=== PATIENT | female | born 1975 | race Caucasian/White ===

== ENCOUNTER 2022-02-12 09:43 | Outpatient (CLI) | payer BC, SELFPAY ==
--- NOTE | 2022-02-12 09:45 | CRLHL7_ITS ---
For Patients: As a result of the Century Cures Act, medical imaging exams and procedure reports are released immediately into your electronic medical record. You may view this report before your referring provider. If you have questions, please contact your health care provider. INDICATION: Third trimester scan, evaluate growth. COMPARISON: none TECHNIQUE: Real time ellis scale imaging of the fetus was performed. FINDINGS: Sonographic imaging demonstrates a single living intrauterine gestation. Fetus demonstrates a regular cardiac rate of 139 beats per minute. Fetus has a vertex position. The placenta lies anteriorly without evidence of placenta previa. The edge of the placenta is located 4.5 cm from the internal cervical os. Amniotic fluid volume appears normal and there is a single deepest vertical pocket: 6.6 cm. The estimated weight is 1288gm which lies at the 58th %. BPD 84th percentile. HC 86th percentile. AC 60th percentile. FL 29th percentile. The HC/AC ratio measures 1.14 range (0.98-1.20). Anterior fibroids are present measuring 1.9 x 1.3 x 2.2 cm and 3.1 x 1.7 x 3.3 cm. IMPRESSION: The anterior placental edge is located 4.5 cm from the internal cervical os. Anterior fibroids measuring 3.3 cm and 2.2 cm. Sonographic gestational age 29 weeks 3 days and sonographic due date 04/27/2022. Sonographic age 8 days ahead of the clinical age. Estimated weight 58th percentile. Abdominal circumference 60th percentile. Dictated by Twan Pickens MD @ 02/12/2022 11:20:50 AM (Electronically Signed)
--- OUTSIDE RECORDS SUMMARY | 2022-02-12 09:50 | XMS_ITS | Clinical Summary ---
:1975 Author Organization [facility] Address [address] [place] [id number] Care Team Providers Name Role Phone Unavailable Primary Care Provider Unavailable Encounters Date Type Specialty Care Team Description 01/03/2022 Office Visit Maternal and Danay Quesada, resulting Medicine Neo A from in vitro Ana Arreaga fertilizat ion in DO sharath Narvaez trimeste r (Primary Dx) 01/03/2022 Hospital Encounter Radiology. Danay Quesada related Neo A condition Ana Arreaga DO 01/03/2022 Travel 12/12/2021 Office Visit Maternal and Danay Quesada, Placenta previa in second trimester (Primary Dx); Medicine Neo A Uterine fibroids affecting in second trimester Aan Arreaga DO 12/12/2021 Hospital Encounter Radiology. Danay Quesada related Neo A condition Ana Arreaga DO 12/12/2021 PRE VISIT Maternal and Agus Romerooun d (L2-IVF) Medicine DON Ferreira 12/12/2021 Travel from Last 3 Months Social History Tobacco Use Types Packs/Day Years Used Date Smoking Tobacco: Never Assessed Estimated Date of Delivery Comments Yes 05/05/2022 Based on Other Basis , Dating based on IVF transfer date of 08/04 08/25 Sex Assigned at Date Recorded Not on file Plan of Treatment Health Maintenance Due Date Last Done Comments ADVANCE CARE PLANNING 1975 ANNUAL REVIEW OF HM ORDERS 1975 CT COLONOGRAPHY 1975 FIT-DNA (Cologuard) 1975 FIT 1975 FLEX SIG 1975 MAMMO SCREENING 1975 YEARLY PREVENTIVE VISIT 1975 COLONOSCOPY 1985 COLORECTAL CANCER SCREENING 1985 HIV SCREENING 1990 HEPATITIS C SCREENING 1993 PAP 02/29/1996 LIPID 02/29/2020 PHQ-2 (once per calendar 05/06/2021 year) COVID-19 Vaccine (4 - 05/17/2021 03/22/2021, 09/14/2020, Booster for Moderna series) 08/16/2020 DTAP/TDAP/TD IMMUNIZATION 10/16/2021 10/17/2011, 03/04/2002 (2 - Td or Tdap) MATERNAL SCREENING 11/11/2021 INFLUENZA VACCINE (#1) 2022 02/17/2021, 02/16/2020, 02/11/2019, Additional history exists OBGCT (OB) 01/13/2022 REPEAT ANTIBODY SCREEN (OB) 02/10/2022 HEPATITIS B IMMUNIZATION Aged Out 12/10/2002, 04/14/2002, No longer eligible 03/04/2002 based on patient 's age to complete this topic IPV IMMUNIZATION Aged Out 09/26/2006 No longer eligi ble based on patient 's age to complete this topic MENINGITIS IMMUNIZATION Aged Out No longe r eligible based on patient 's age to complete this topic Pneumococcal Vaccine: Aged Out No longer eligible Pediatrics (0 to 5 Years) based on patient's age and At-Risk Patients (6 to to co mplete this topic 64 Years) Procedures Procedure Name Priority Date/Time Associated Comments Diagnosis [facility] READ SCREENING Routine 01/03/2022 2:33 PM relate d Results for this ECHO DEMPSEY CDT condition procedu re are in the results section. [facility] COMPREHENSIVE Routine 12/12/2021 12:31 relate d Results for this SINGLE PM CDT condition procedure are i n the results section. from Last 3 Months Results [facility] Read Screen Echo Single (01/03/2022 2:33 PM CDT) Anatomical Region Laterality Modality Ultrasound Specimen (Source) Anatomical Collection Method Collection Time Re ceived Time Location / / Volume Laterality 01/03/2022 1:18 PM CDT Impressions 01/03/2022 3:09 PM CDT IMPRESSION Normal echo for this gestational a ge. On any echocardiography one cannot rule out small atrial or ventricular septal defects, persistent ductus arteriosus, mild coarctation of the aorta, partial anomal ous pulmonary venous return, minor anatomic valve anomalies or coronary artery anomalies, partial atrioventricular septal defects also may not be seen. Narrative 01/03/2022 3:09 PM CDT Echo Pat. Name: ELIZABETH CONDE Study Date: 01/03/2022 1:18pm Pat. NO: [id number] Referring ??MD: ISSAC KEYES PURDY Site: [facility] Cnc Specialist: Briana Thapa RDMS : 1975 Age: 46 INDICATION In vitro fertilization METHOD Grayscale imaging, Doppler echocardiogra phy color flow velocity mapping and Doppler echocardiography pulsed wave and or wave with spectral display were used to assess cardiac structures for bryon vazquez [facility] echocardiogram. View: Sufficient Dempsey . Number of fetuses: 1 DATING ? Date ?Details ?Gest. age ?GWENDOLYN Conception ? Conception: IVF Embryo transfer ?08/17/2021 ?IVF / ET: 5 d ? 22 w + 4 d ? 05/05/2022 Assigned dating ?Dating performed on 12/12/2021, based on the IVF / ET date ?22 w + 4 d ? 05/05/2022 GENERAL EVALUATION Cardiac activity present. FHR 154 bpm. movements visualized. Presentation Variable. Placenta Placental site: anterior. Umbilical cord 3 vessel cord. Amniotic fluid Amount of AF: normal. MVP 5.0 cm. ECHOCARDIOGRAM 2D Echo (Qualitatively): Situs ?situs solitus (normal) Cardiac position ?levocardia (normal) Cardiac axis ?normal Cardiac size ?normal (approx. 1/3 of thoracic area) Cardiac Rhythm ?regular (normal) 4-chamber view ? normal LVOT view ? normal RVOT view ?normal 3-vessel view ? normal 7-vrwxsa-yowfipe view ? normal High short axis view ? normal Aortic arch view ? normal Ductal arch view ?suboptimal Bicaval view ?normal SVC ? normal IVC ?normal AV connections ? Normal alignment VA connections ? Normal size and morphology Pulmonary veins ?Two or more pulmonary veins are identified entering the left atrium. Atria ? Atria approximately equal in size Atrial septum ?Normal size and morphology Foramen ovale ? Normal, patent foramen ovale Ventricles ? Ventricles approximately equal in size Ventricular septum ? Ventricular septum appears intact (apex to crux) Tricuspid valve ? No significant regurgitation seen Mitral valve ?No significant regurgitation seen Pulmonary valve ?Normal size and morphology Aortic valve ? Normal size and morphology Cross-over gr. arteries ?Normal 4 chamber view with normal axis and situs. Normal relationship of the great arteries. Main PA ? The main pulmonary artery can be seen bifurcating into the arterial duct and the right pulmonary artery Pulmonary trunk ?Normal size and morphology Aortic root ? Normal size and morphology Ascending aorta ?Normal size and morphology Descending aorta ?Normal size and morphology Ductus venosus ? Normal Umbilical vein ?Normal Umbilical arteries ? Normal Linear insertion of AV valves ?no Pericardial effusion ?no Color Doppler (Qualitatively): 4-chamber view diast ?Normal LVOT view ? Normal RVOT view ?Normal 3-vessel view ? Normal 3-vessel - trachea view ? Normal Valvular regurgitation ?no IVC inflow into RA ? normal ? LVOT / Aortic valve flow ?normal SVC inflow into RA ?normal ? Flow in pulmonary arteries ? normal Pulm. veins inflow into LA ?normal ? Flow in ductus arteriosus ? normal Flow through foramen ovale ?right-left shunt (normal) ? Flow in aortic arch ? normal Tricuspid valve flow ?normal ? Flow in descending aorta ? normal Mitral valve flow ? normal ? Flow in ductus venosus ? normal Ventricular septum ?normal ? Flow in the umbilical arteries ?normal RVOT / Pulmonary valve flow ?normal 2D and M-Mode Measurements: Cardiac Chambers 2D Mode: TV annulus diast ? 5.6 ?mm ? MV annulus diast ?6.0 ?mm PV annulus syst ?3 .8 ? mm ? AoV annulus syst ? 3.0 ?mm MV annulus diast / TV ?1.07 ? AoV annulus syst / PV ?0.79 annulus diast ?annulus syst Heart Z-Scores: ? Z- GA ? Zscore by TV annulus diast ? 5.6 ?mm ? -1.18 ? Pizano MV annulus diast ?6.0 ?mm ? -0.67 ? Pizano PV annulus syst ? 3.8 ?mm ?-0.54 ?Pizano AoV annulus syst ? 3.0 ?mm ?-0.92 ? [facility] RECOMMENDATION Thank-you for referring your patient for a screening echocardiogram. I discussed the findings on today's ultr asound with the patient. I reviewed the limitations of ultrasound. Further cardiac evaluation as clinically indicated. She had questions about the COVID-19 vac cine during . She is fully vaccinated and boosted against COVID at this time, but was enquiring about vaccination in if she were to become eligible for vaccination for another indication. We reviewed that there are no known contraindications to COVID vaccination in and would support her proceeding with is, if eligible. She is scheduled to follow-up at 28 and 34 weeks to reassess placental location as well as growth. Additionally, surveillance with weekly BPPs is recommended at 36 weeks due to IVF and A MA>40. Return to primary provider for continued care. If you have questions regarding today's evaluation or if we can be of further service, please contact [facility]. anomalies may be present but not detected Procedure Note Ana Arreaga, DO - 01/03/2022 Echo Pat. Name:Keisha CONDE Date: 1:18pm Pat. NO: [id number] MD:NEO Beatty [facility]Briana Thapa [facility] S :1975Age:46 INDICATION In vitro fertilization METHOD Grayscale imaging, Doppler echocardiogra phy color flow velocity mapping and Doppler echocardiography pulsed wave and or wave with spectral display were used to assess cardiac structures for bryon vazquez [facility] echocardiogram. View: Sufficient Dempsey . Number of fetuses: 1 DATING Date Details Gest. age GWENDOLYN Conception Conception: IVF Embryo transfer 08/17/2021 IVF / ET: 5 d w + 4 d 05/05/2022 Assigned dating Dating performed on 12/12, based on the IVF / ET date w + 4 d 05/05/2022 GENERAL EVALUATION Cardiac activity present. FHR 154 bpm. movements visualized. Presentation Variable. Placenta Placental site: anterior. Umbilical cord 3 vessel cord. Amniotic fluid Amount of AF: normal. MVP 5.0 cm. ECHOCARDIOGRAM 2D Echo (Qualitatively): Situs situs solitus (normal) Cardiac position levocardia (normal) Cardiac axis normal Cardiac size normal (approx. 1/3 of tho racic area) Cardiac Rhythm regular (normal) 4-chamber view normal LVOT view normal RVOT view normal 3-vessel view normal 2-rbwrhq-qqubwlz view normal High short axis view normal Aortic arch view normal Ductal arch view suboptimal Bicaval view normal SVC normal IVC normal AV connections Normal alignment VA connections Normal size and morpholog y Pulmonary veins Two or more pulmonary ve ins are identified entering the left atrium. Atria Atria approximately equal in size Atrial septum Normal size and morphology Foramen ovale Normal, patent foramen ova le Ventricles Ventricles approximately equ al in size Ventricular septum Ventricular septum ap pears intact (apex to crux) Tricuspid valve No significant regurgit ation seen Mitral valve No significant regurgitati on seen Pulmonary valve Normal size and morpholo gy Aortic valve Normal size and morphology Cross-over gr. arteries Normal 4 chamber view with normal axis and situs. Normal relationship of the great arteries. Main PA The main pulmonary artery can b e seen bifurcating into the arterial duct and the right pulmonary artery Pulmonary trunk Normal size and morpholo gy Aortic root Normal size and morphology Ascending aorta Normal size and morpholo gy Descending aorta Normal size and morphol ogy Ductus venosus Normal Umbilical vein Normal Umbilical arteries Normal Linear insertion of AV valves no Pericardial effusion no Color Doppler (Qualitatively): 4-chamber view diast Normal LVOT view Normal RVOT view Normal 3-vessel view Normal 3-vessel - trachea view Normal Valvular regurgitation no IVC inflow into RA normal LVOT / Aortic valve flow normal SVC inflow into RA normal Flow in pulmon nino arteries normal Pulm. veins inflow into LA normal Flow in ductus arteriosus normal Flow through foramen ovale right-left sh unt (normal) Flow in aortic arch normal Tricuspid valve flow normal Flow in desc ending aorta normal Mitral valve flow normal Flow in ductus venosus normal Ventricular septum normal Flow in the um bilical arteries normal RVOT / Pulmonary valve flow normal 2D and M-Mode Measurements: Cardiac Chambers 2D Mode: TV annulus diast 5.6 mm MV annulus diehl t 6.0 mm PV annulus syst 3.8 mm AoV annulus syst 3.0 mm MV annulus diast / TV 1.07 AoV annulus syst / PV 0.79 annulus diast annulus syst Heart Z-Scores: Z- GA Zscore by TV annulus diast 5.6 mm -1.18 Татьяна r MV annulus diast 6.0 mm -0.67 Татьяна armstrong PV annulus syst 3.8 mm -0.54 Pizano AoV annulus syst 3.0 mm -0.92 Татьяна armstrong RECOMMENDATION Thank-you for referring your patient for a screening echocardiogram. I discussed the findings on today's ultr asound with the patient. I reviewed the limitations of ultrasound. Further cardiac evaluation as clinically indicated. She had questions about the COVID-19 vac cine during . She is fully vaccinated and boosted against COVID at this time, but was enquiring about vaccination in if she were to become eligible for vaccination for another indication. We reviewed that there are no known contraindications to COVID vaccination in and would support her proceeding with is, if eligible. She is scheduled to follow-up at 28 and 34 weeks to reassess placental location as well as growth. Additionally, surveillance with weekly BPPs is recommended at 36 weeks due to IVF and A MA>40. Return to primary provider for continued care. If you have questions regarding today's evaluation or if we can be of further service, please contact the [facility]. anomalies may be present but not detected IMPRESSION Normal echo for this gestational a ge. On any echocardiography one cannot rule out small atrial or ventricular septal defects, persistent ductus arteriosus, mild coarctation of the aorta, partial anomal ous pulmonary venous return, minor anatomic valve anomalies or coronary artery anomalies, partial atrioventricular septal defects also may not be seen. Neo FAJARDO [facility] US ORDERABLES [facility] US Comprehensive Single (12/12/2021 12:31 PM CDT) Anatomical Region Laterality Modality Ultrasound Specimen (Source) Anatomical Collection Method Collection Time Re ceived Time Location / / Volume Laterality 12/12/2021 11:32 AM CDT Impressions 12/12/2021 1:40 PM CDT IMPRESSION 1) Intrauterine at 19 3/7 week s gestational age. 2) None of the anomalies commonly detect ed by ultrasound were evident in the detailed anatomic survey described above. 3) Growth parameters and estimated weight were consistent with an appropriate for gestation age pattern of growth. 4) The amniotic fluid volume appeared no rmal. 5) Anterior fibroids with dimensions abo ve. 6) There is an anterior placenta previa. Narrative 12/12/2021 1:40 PM CDT Comprehensive Pat. Name: ELIZABETH CONDE Study Date: 12/12/2021 11:32am Pat. NO: [id number] Referring ??MD: ISSAC MUÑOZ Site: [facility] Cnc Specialist: Nori Washington ABIDA MENG : 1975 Age: 46 INDICATION In Vitro Fertilization, normal PGT. METHOD Transabdominal ultrasound examination. V iew: Sufficient Dempsey . Number of fetuses: 1 DATING ? Date ?Details ?Gest. age ?GWENDOLYN Conception ? Conception: IVF Embryo transfer ?08/17/2021 ?IVF / ET: 5 d ? 19 w + 3 d ? 05/05/2022 U/S ? 12/12/2021 ?based upon AC, BPD, Femur, HC ? 20 w + 1 d ? 04/30/2022 Assigned dating ?Dating performed on 12/12/2021, based on the IVF / ET date ?19 w + 3 d ? 05/05/2022 GENERAL EVALUATION Cardiac activity present. FHR 152 bpm. movements present. Presentation breech. Placenta anterior, previa. Umbilical cord 3 vessel cord. Amniotic fluid Amount of AF: normal. MVP 5.8 cm. BIOMETRY Main Biometry: BPD ?46.9 ?mm ? 20w 1d ?Hadlock OFD ?64.0 ?mm ? 20w 3d ?Nicolaides HC ?177.9 ?mm ?20w 2d ?Hadlock Cerebellum tr ?19.6 ? mm ?18w 6d ?Nicolaides AC ?147.2 ?mm ?20w 0d ?65% ?Hadlock Femur ?32.9 ? mm ?20w 2d ?Hadlock Humerus ?30.4 ?mm ? 20w 0d ?Marianela Weight Calculation: EFW ? 335 ? g ? 83% ?Hadlock EFW (lb,oz) ? 0 lb 12 ? oz EFW by ?Hadlock ([id number]) Head / Face / Neck Biometry: Heliarc Welder ? 7.5 ? mm CM ?5.9 ? mm Nasal bone ? 6.6 ? mm Nuchal fold ? 5.6 ? mm ANATOMY The following structures appear normal: Head / Neck ? Cranium. Head size. Head shape. Lateral ventricles. Choroid plexus. Midline falx. Cavum septi pellucidi. Cerebellum. Cisterna magna. ? Parenchyma. Thalami. Vermis. ? Neck. Nuchal fold. Face ? Lips. Profile. Nose. Maxilla. Mandible. Orbits. Lens. Heart / Thorax ?4-chamber view. RVOT view. LVOT view. Situs. Aortic arch view. Bicaval view. Ductal arch view. Superior vena cava. Inferior vena cava. 3-vessel ? view. 6-clgbfl-cwcrsua view. Cardiac position. Cardiac size. Cardiac rhythm. ? Right lung. Left lung. Diaphragm. Abdomen ? Abdominal wall. Cord insertion. Stomach. Kidneys. Bladder. Liver. Bowel. Genitals. Spine ?Cervical spine. Thoracic spine. Lumbar spine. Sacral spine. Extremities / Skeleton ?Rig ht arm. Right hand. Left arm. Left hand. Right leg. Right foot. Left leg. Left foot. MATERNAL STRUCTURES Uterus ? Fibroid(s) ? 1. ?Size 35 mm x 32 mm x 19 mm. Mean 28.7 mm. Vol 11.142 cm?. Anterior ? 2. ?Size 20 mm x 15 mm x 11 mm. Mean 15.3 mm. Vol 1.728 cm?. Anterior Cervix ?Visualized ? Appearance: Appears Closed ? Approach - Transabdominal: Cervical length 43.4 mm Right Ovary ?Visualized Left Ovary ?Visualized RECOMMENDATION We discussed the findings on today's ult rasound with the patient. conceived via IVF with donor e gg/donor sperm. Had PGD which was normal. Patient is on a baby ASA. Discussed the findings of the placenta previa and reviewed precautions. We discussed retur mallory to [facility] in 3 weeks for a echo due to IVF. Consider growth US at 28 and 34 weeks du e to fibroids and to assess growth and placental location which can be performed in our office or yours, whichever you prefer. Weekly surveillance is advised a t 36 weeks due to AMA >40 and IVF. Delivery by 39 weeks (sooner if placenta previa is persistent). Return to primary provider for continued care. Thank you for the opportunity to partici lillie in the care of this patient. If you have questions regarding today's evaluation or if we can be of further service, please contact the [facility]. anomalies may be present but not detected Procedure Note Ana Arreaga, DO - 12/12/2021 Comprehensive Caroline. Name:Keisha CONDE Date: 11:32am Pat. NO: [id number] :NEO Beatty [facility]Nori Washington RDMS :1975Age:46 INDICATION In Vitro Fertilization, normal PGT. METHOD Transabdominal ultrasound examination. V iew: Sufficient Dempsey . Number of fetuses: 1 DATING Date Details Gest. age GWENDOLYN Conception Conception: IVF Embryo transfer 08/17/2021 IVF / ET: 5 d 19 w + 3 d 05/05/2022 U/S 12/12/2021 based upon AC, BPD, Femur, HC 20 w + 1 d 04/30/2022 Assigned dating Dating performed on 12/12, based on the IVF / ET date 19 w + 3 d 05/05/2022 GENERAL EVALUATION Cardiac activity present. FHR 152 bpm. movements present. Presentation breech. Placenta anterior, previa. Umbilical cord 3 vessel cord. Amniotic fluid Amount of AF: normal. MVP 5.8 cm. BIOMETRY Main Biometry: BPD 46.9 mm 20w 1d Hadlock OFD 64.0 mm 20w 3d Nicolaides HC 177.9 mm 20w 2d Hadlock Cerebellum tr 19.6 mm 18w 6d Nicolaides AC 147.2 mm 20w 0d 65% Hadlock Femur 32.9 mm 20w 2d Hadlock Humerus 30.4 mm 20w 0d Marianela Weight Calculation: EFW 335 g 83% Hadlock EFW (lb,oz) 0 lb 12 oz EFW by Hadlock ([id number]) Head / Face / Neck Biometry: Heliarc Welder 7.5 mm CM 5.9 mm Nasal bone 6.6 mm Nuchal fold 5.6 mm ANATOMY The following structures appear normal: Head / Neck Cranium. Head size. Head sha pe. Lateral ventricles. Choroid plexus. Midline falx. Cavum septi pellucidi. Cerebellum. Cisterna magna. Parenchyma. Thalami. Vermis. Neck. Nuchal fold. Face Lips. Profile. Nose. Maxilla. Mirtha ble. Orbits. Lens. Heart / Thorax 4-chamber view. RVOT view . LVOT view. Situs. Aortic arch view. Bicaval view. Ductal arch view. Superior vena cava. Inferior vena cava. 3-vessel view. 9-kgngvi-ttggkqf view. Cardiac po sition. Cardiac size. Cardiac rhythm. Right lung. Left lung. Diaphragm. Abdomen Abdominal wall. Cord insertion. Stomach. Kidneys. Bladder. Liver. Bowel. Genitals. Spine Cervical spine. Thoracic spine. Araceli mbar spine. Sacral spine. Extremities / Skeleton Right arm. Right hand. Left arm. Left hand. Right leg. Right foot. Left leg. Left foot. MATERNAL STRUCTURES Uterus Fibroid(s) 1. Size 35 mm x 32 mm x 19 mm. Mean 28. 7 mm. Vol 11.142 cm?. Anterior 2. Size 20 mm x 15 mm x 11 mm. Mean 15. 3 mm. Vol 1.728 cm?. Anterior Cervix Visualized Appearance: Appears Closed Approach - Transabdominal: Cervical moe gth 43.4 mm Right Ovary Visualized Left Ovary Visualized RECOMMENDATION We discussed the findings on today's ult rasound with the patient. conceived via IVF with donor e gg/donor sperm. Had PGD which was normal. Patient is on a baby ASA. Discussed the findings of the placenta previa and reviewed precautions. We discussed retur mallory to [facility] in 3 weeks for a echo due to IVF. Consider growth US at 28 and 34 weeks du e to fibroids and to assess growth and placental location which can be performed in our office or yours, whichever you prefer. Weekly surveillance is advised a t 36 weeks due to AMA >40 and IVF. Delivery by 39 weeks (sooner if placenta previa is persistent). Return to primary provider for continued care. Thank you for the opportunity to partici lillie in the care of this patient. If you have questions regarding today's evaluation or if we can be of further service, please contact the [facility]. anomalies may be present but not detected IMPRESSION 1) Intrauterine at 19 3/7 week s gestational age. 2) None of the anomalies commonly detect ed by ultrasound were evident in the detailed anatomic survey described above. 3) Growth parameters and estimated weight were consistent with an appropriate for gestation age pattern of growth. 4) The amniotic fluid volume appeared no rmal. 5) Anterior fibroids with dimensions abo ve. 6) There is an anterior placenta previa. Neo Quesada Ivet [facility] US ORDERABLES from Last 3 Months Insurance Payer Benefit Plan / Subscriber ID Effective Dates Phone Addre ss Type Group BC[place] [id number] 2021-Prescherri [phone] [address] [address] Indemnity t [address] [place] [address]
--- OUTSIDE RECORDS SUMMARY | 2022-02-12 09:50 | XMS_ITS | Clinical Summary ---
:1975 Author Organization [employer] [place] [address] Care Team Providers Name Role Phone Erin Lockett MD Primary Care Provider Allergies No known active allergies Medications Medication Sig Dispensed Refills Start Date End Date Status Isibloom tablet TAKE 1 ACTIVE 0 04/12/2021 Active TABLET BY MOUTH DAILY vit Take 1 Tablet by 0 Active no.129/iron/folic mouth once daily. ( ONE DAILY ORAL) Iron 18 mg tablet Take 1 Tablet by 0 Active mouth once daily. cyanocobalamin Take 2 Tablets by 0 Active (VITAMIN B12) 500 mcg mouth once daily. tablet cholecalciferol Take 1 Capsule 0 06/01/2021 Active (Vitamin D) 1,000 (1,000 units) by unit capsule mouth once daily. acetaminophen Take 1-2 Tablets 100 Tablet 0 06/13/2021 Active (TYLENOL) 325 mg (325-650 mg) by tabletIndications: mouth every 4 hours Submucous uterine if needed (mild fibroid pain). Max acetaminophen dose: 4000mg in 24 hrs. ibuprofen (ADVIL; Take 2-4 Tablets 100 Tablet 0 06/13/2021 Active MOTRIN) 200 mg (400-800 mg) by tabletIndications: mouth every 6 hours Submucous uterine if needed for Pain fibroid (mild pain). Active Problems Problem Noted Date Allergic rhinitis, cause unspecified Immunizations Name Administration Dates Next Due AMB Influenza, IIV3 (Age >=3 02/22/2010 years)(Flu Clinic Only) HepA-HepB (Twinrix) 12/10/2002, 04/14/2002, 03/04/2002 Inactivated Polio Vaccine 09/26/2006 Influenza A (H1N1), Inactivated 05/18/2009 Influenza Virus, Unspecified 02/13/2017, 01/18/2015 Influenza, IIV3 (Age 6-35 mos) 03/10/2009 Influenza, IIV3 (Age >=3 years) 03/08/2014, 05/12/2012, 02/04, 03/10/2009, 09/26/2006, 03/04/2002 Influenza, IIV4 02/17/2021 Influenza, IIV4 (=>6mos) MDV 02/16/2020, 02/11/2019, 018 Influenza, Whole Virus 02/13/2017 Influenza, ccIIV3 (Age >=18 Years) 04/21/2013 Td (Age >=7 Years) 03/04/2002 Tdap 10/17/2011 Tuberculin (PPD) 08/26/2007 Typhoid (injectable) 11/29/2016, 12/24/2013, 03/04/2002 Yellow Fever 11/04/2014 Family History Medical History Relation Name Comments Good Health Father Cancer Maternal Grandmother pancreatic Good Health Mother Hyperlipidemia Mother Osteoporosis Mother Other Mother migraine maradiaga Thyroid Disease Mother hypothyroid Cancer-breast No Family History Relation Name Status Comments Father Alive Maternal Grandmother Mother Alive Social History Tobacco Use Types Packs/Day Years Used Date Never Smoker Smokeless Tobacco: Never Used Tobacco Cessation: Counseling Given: Yes Alcohol Use Standard Drinks/Week Comments Not Currently 2 (1 standard drink = 0.6 oz pure couple glasses of wine a week alcohol) Alcohol Habits Answer Date Recorded How often do you have a drink containing Not asked alcohol? How many drinks containing alcohol do you Not asked have on a typical day when you are drinking? How often do you have six or more drinks Not asked on one occasion? Comment: couple glasses of wine a week 06/13/2021 Sex Assigned at Date Recorded Not on file Obstetrics History Para Term AB IAB SAB Ectopic Multiple Living Live Births 0 Last Filed Vital Signs Vital Sign Reading Time Taken Comments Blood Pressure 100/78 06/13/2021 12:15 PM [employer] [employer] Pulse 80 06/13/2021 12:30 PM [employer] Temperature 37 ??C (98.6 ??F) 06/13/2021 12:30 PM [employer] Respiratory Rate 16 06/13/2021 12:15 PM [employer] Oxygen Saturation 98% 06/13/2021 12:30 PM [employer] Inhaled Oxygen Concentration - - Weight 66.2 kg (146 lb) 06/13/2021 9:22 AM [employer] Height 162.6 cm (5' 4) 06/13/2021 9:22 AM [employer] Body Mass Index 25.06 06/13/2021 9:22 AM [employer] Plan of Treatment Health Maintenance Due Date Last Done Comments Hepatitis C screening for age 1002/28/1993 18-79 Colonoscopy through age 75 02/29/2020 BMI (ht and wt on same day) for 03/18/2020 03/18/2019, 12/05, age 18+ 05/19/2018, Additional history exists Mammogram for age 45-75 06/25/2020 06/25/2019, 04/03/2018, 05/31/2015 Tetanus booster 10/16/2021 10/17/2011, 03/04/2002 Influenza for age 9-49 01/04/2022 02/17/2021, 02/16/2020, 02/11/2019, Additional history exists Depression screening for age 12+ 06/02/2022 06/02/2021, 12/2018, 06/04/2017, Additional history exists Lipids for age 45-75 04/03/2023 04/03/2018, 10/08/2013, 05/19/2010 Pap test for age 21-65 08/24/2025 08/24/2020, 08/24/2020, 06/14/2016, Additional history exists Tdap Completed 10/17/2011 COVID-19 vaccine series Completed 03/22/2021, 09/14/2020, 08/16/2020 Results Not on filefrom Last 3 Months Insurance Payer Benefit Plan / Subscriber ID Effective Dates Phone Addre ss Type Group BLUE [employer]OSS BLUE [employer] OF [id number] 2016-Present [address] [place] [address] [phone] (Work) Advance Directives Latest Code Status on File Code Status Date Activated Date Inactivated Comments Full Code 06/13/2021 8:58 AM 06/13/2021 2:59 PM Code Status Discussion: Unable to Assess Preferences, Provid er to review later Care Teams Shaker Tender Relationship Specialty Start Date End Date Erin Lockett MD PCP - General Family Practice 05/24/211999 [place], [place] [id number]
--- OUTSIDE RECORDS SUMMARY | 2022-02-12 09:51 | XMS_ITS | Encounter Summary ---
:1975 Author Organization [facility] Address [address] [place] [address] Care Team Providers Name Role Phone Unavailable Primary Care Provider Unavailable Reason for Referral Diagnostic Imaging Ultrasound (Routine) - Pending Review Specialty Diagnoses / Procedures Referred By Contact Refer red To Contact Diagnoses related condition Neo Zavala Procedures [facility] [address] [place] [address] Referral ID Status Reason Start Date Expiration Date Visits V isits Requested Authorized [id number] Pending 11/09/2021 11/09/2022 1 1 Review Reason for Visit Diagnostic Imaging Ultrasound (Routine) - Pending Review Specialty Diagnoses / Procedures Referred By Contact Refer red To Contact Diagnoses related condition Neo Zavala Procedures [facility] [address] [place] [address] Referral ID Status Reason Start Date Expiration Date Visits V isits Requested Authorized [id number] Pending 11/09/2021 11/09/2022 1 1 Review Encounter Details Date Type Department Care Team Description 12/12/2021 Hospital Encounter M [facility] Neo Zavala [facility] [address] [place] [address] related Maternal ArreagaAna, DO [address] [facility] [address] [place], [place] [phone] [facility] [address] [facility] [address] [place] [address] Social History Tobacco Use Types Packs/Day Years Used Date Smoking Tobacco: Never Assessed Sex Assigned at Date Recorded Not on file COVID-19 Exposure Response Date Recorded In the last 10 days, have you been in contact with No / Unsu re 12/12/2021 11:30 AM CDT someone who was confirmed or suspected to have Coronavirus/COVID-19? documented as of this encounter Plan of Treatment Not on filedocumented as of this encounter Procedures Procedure Name Priority Date/Time Associated Comments Diagnosis [facility] US COMPREHENSIVE Routine 12/12/2021 12:31 relate d Results for this SINGLE PM CDT condition procedure are i n the results section. documented in this encounter Results [facility] US Comprehensive Single (12/12/2021 12:31 PM [...] CONDE Study Date: 12/12/2021 11:32am Pat. NO: [id number] Referring ??MD: ISSAC MUÑOZ Site: [facility] Waterproof Material Folder: Nori Washington RD MS : 1975 Age: 46 INDICATION In Vitro Fertilization, normal PGT. METHOD Transabdominal ultrasound examination. V iew: Sufficient Britton . Number of fetuses: 1 DATING ? [...] lb 12 ? oz EFW by ?Hadlock ([id number]) Head / Face / Neck Biometry: Autocutter ? 7.5 ? mm CM ?5.9 ? [...] cava. Inferior vena cava. 3-vessel ? view. 6-jtpned-vcxcvzh view. Cardiac position. Cardiac size. Cardiac rhythm. [...] reviewed precautions. We discussed retur mallory to [facility] in 3 weeks for a echo [...] Note Ana Arreaga, DO - 12/12/2021 Comprehensive Pat. Name:Keisha CONDE Date: 11:32am Pat. NO: [id number] MD:NEO CHASE TOUSSAINT [facility]Nori Washington RD :1975Age:46 INDICATION In Vitro Fertilization, normal PGT. METHOD Transabdominal ultrasound examination. V iew: Sufficient Britton . Number of fetuses: 1 DATING Date [...] 0 lb 12 oz EFW by Hadlock ([id number]) Head / Face / Neck Biometry: Autocutter 7.5 mm CM 5.9 mm Nasal bone [...] vena cava. Inferior vena cava. 3-vessel view. 4-msevbd-kmlbcvy view. Cardiac po sition. Cardiac size. Cardiac [...] RECOMMENDATION We discussed the findings on today's [facility] rasound with the patient. conceived via IVF with donor e gg/donor sperm. Had PGD which was normal. Patient is on a baby ASA. Discussed the findings of the placenta previa and reviewed precautions. We discussed retur mallory to [facility] in 3 weeks for a echo [...] There is an anterior placenta previa. Neo Toussaint [facility] US ORDERABLES documented in this encounter Visit Diagnoses Diagnosis related condition Unspecified complication of , u nspecified as to episode of care documented in this encounter
--- OUTSIDE RECORDS SUMMARY | 2022-02-12 09:51 | XMS_ITS | Encounter Summary ---
:1975 Author Organization [facility] Address [address] [place] [address] Care Team Providers Name Role Phone Unavailable Primary Care Provider Unavailable Reason for Referral Diagnostic Imaging Ultrasound (Routine) - Pending Review Specialty Diagnoses / Procedures Referred By Contact Refer red To Contact Diagnoses related condition Neo Zavala Procedures [facility] Read Screen Echo [facility] [address] [place] [address] Referral ID Status Reason Start Date Expiration Date Visits V isits Requested Authorized [id number] Pending 11/09/2021 11/09/2022 1 1 Review Reason for Visit Diagnostic Imaging Ultrasound (Routine) - Pending Review Specialty Diagnoses / Procedures Referred By Contact Refer red To Contact Diagnoses related condition Neo Zavala Procedures M[facility] Read Screen Echo [facility] [address] [place] [address] Referral ID Status Reason Start Date Expiration Date Visits V isits Requested Authorized [id number] Pending 11/09/2021 11/09/2022 1 1 Review Encounter Details Date Type Department Care Team Description 01/03/2022 Hospital Encounter M [facility] Neo Zavala [facility] [address] [place] [address] related Maternal Ana Arreaga DO [address] [place] [address] [place], [place] [address] [facility] [address] [place] [address] Social History Tobacco Use Types Packs/Day Years Used Date Smoking Tobacco: Never Assessed Sex Assigned at Date Recorded Not on file COVID-19 Exposure Response Date Recorded In the last 10 days, have you been in contact with No / Unsu re 01/03/2022 1:22 PM CDT someone who was confirmed or suspected to have Coronavirus/COVID-19? documented as of this encounter Plan of Treatment Not on filedocumented as of this encounter Procedures Procedure Name Priority Date/Time Associated Diagnosis Comme nts [facility] READ SCREENING Routine 01/03/2022 2:33 PM relate d Results for this ECHO CDT condition procedure are i n DEMPSEY the results section. documented in this encounter Results M Read Screen Echo Single (01/03/2022 2:33 PM [...] CONDE Study Date: 01/03/2022 1:18pm Pat. NO: [id number] Referring ??MD: ISSAC MUÑOZ Site: [facility] Fruit Thinner: Briana Thapa RDMS : 1975 Age: 46 INDICATION In vitro fertilization METHOD Grayscale imaging, Doppler echocardiogra phy color flow velocity mapping and Doppler echocardiography pulsed wave and or wave with spectral display were used to assess cardiac structures for bryon vazquez [facility] echocardiogram. View: Sufficient Dempsey . Number of [...] RVOT view ?normal 3-vessel view ? normal 9-bgcklc-arznihb view ? normal High short axis view [...] annulus diast ?6.0 ?mm ? -0.67 ? Harinder PV annulus syst ? 3.8 ?mm ?-0.54 ?Harinder AoV annulus syst ? 3.0 ?mm ?-0.92 ? Harinder RECOMMENDATION Thank-you for referring your patient for [...] in and would support her proceeding with th is, if eligible. She is scheduled to [...] Pat. Name:Keisha CONDE Date: 1:18pm Pat. NO: [id number] MD:NEO Beatty [facility] Site:Juliangrapher:PETE Lorenzo :1975Age:46 INDICATION In vitro fertilization METHOD Grayscale imaging, Doppler echocardiogra phy color flow velocity mapping and Doppler echocardiography pulsed wave and or wave with spectral display were used to assess cardiac structures for bryon george [facility] echocardiogram. View: Sufficient Dempsey . Number of fetuses: 1 DATING Date Details Gest. age GWENDOLYN Conception Conception: IVF Embryo transfer 08/17/2021 IVF / ET: 5 d 22 w + 4 d 05/05/2022 Assigned dating Dating performed on 12/12, based on the IVF / ET date 22 w + 4 d 05/05/2022 GENERAL EVALUATION Cardiac activity present. FHR 154 bpm. movements visualized. Presentation Variable. Placenta Placental site: anterior. Umbilical cord 3 vessel cord. Amniotic fluid Amount of AF: normal. MVP 5.0 cm. ECHOCARDIOGRAM 2D Echo (Qualitatively): Situs situs solitus (normal) Cardiac position levocardia (normal) Cardiac axis normal Cardiac size normal (approx. 1/3 of o racic area) Cardiac Rhythm regular (normal) 4-chamber view normal LVOT view normal RVOT view normal 3-vessel view normal 3-qbujgb-phqjzum view normal High short axis view normal [...] TV annulus diast 5.6 mm -1.18 Татьяна armstrong MV annulus diast 6.0 mm -0.67 Татьяна [...] in and would support her proceeding with th is, if eligible. She is scheduled to [...] defects also may not be seen. Neo Quesada [facility] US ORDERABLES documented in this encounter Visit Diagnoses Diagnosis related condition Unspecified complication of , u nspecified as to episode of care documented in this encounter
--- OUTSIDE RECORDS SUMMARY | 2022-02-12 09:51 | XMS_ITS | Encounter Summary ---
:1975 Author Organization [facility] Address [address] [place] [address] Care Team Providers Name Role Phone Unavailable Primary Care Provider Unavailable Encounter Details Date Type Department Care Team Description 01/03/2022 Travel Social History Tobacco Use Types Packs/Day Years [...] Not on filedocumented as of this encounter Visit Diagnoses Not on filedocumented in this encounter
--- OUTSIDE RECORDS SUMMARY | 2022-02-12 09:51 | XMS_ITS | Encounter Summary ---
:1975 Author Organization [facility] Address [address] [place] [address] Care Team Providers Name Role Phone Unavailable Primary Care Provider Unavailable Reason for Visit Reason Comments Ultrasound L2-IVF Encounter Details Date Type Department Care Team Description 12/12/2021 PRE VISIT [facility] Hanna Romero Ult rasound (L2-IVF) Maternal Medicine [place] [address] [facility] [address] [place] [address] Social History Tobacco Use Types Packs/Day Years [...]
--- OUTSIDE RECORDS SUMMARY | 2022-02-12 09:51 | XMS_ITS | Encounter Summary ---
:1975 Author Organization [facility] Address [address] [place] [address] Care Team Providers Name Role Phone Unavailable Primary Care Provider Unavailable Reason for Referral Diagnostic Imaging Ultrasound (Routine) - Pending Review Specialty Diagnoses / Procedures Referred By Contact Refer red To Contact Diagnoses related condition Neo Zavala Procedures [facility] Read Screen Echo [facility] [address] [place] [address] Referral ID Status Reason Start Date Expiration Date Visits V isits Requested Authorized [id number] Pending 11/09/2021 11/09/2022 1 1 Review Diagnostic Imaging Ultrasound (Routine) - Pending Review Specialty Diagnoses / Procedures Referred By Contact Refer red To Contact Diagnoses related condition Neo Zavala Procedures [facility] [address] [place] [address] Referral ID Status Reason Start Date Expiration Date Visits V isits Requested Authorized [id number] Pending 11/09/2021 11/09/2022 1 1 Review Consultation (Routine: Next available opening) - Pending Review Specialty Diagnoses / Procedures Referred By Contact Refer red To Contact Diagnoses related condition Neo Zavala Rh Maternal [facility] [address] [address] [place] [address] Phone: Fax: Referral ID Status Reason Start Date Expiration Date Visits V isits Requested Authorized [id number] Pending 11/09/2021 11/09/2022 1 1 Review Encounter Details Date Type Department Care Team Description 11/09/[address] [facility] Danay Russoer, Pregn rosanna related Maternal Neo James condition ([facility] D[facility]) [facility] [address] [facility] [address] [place] [phone] Social History Tobacco Use Types Packs/Day Years Used Date Smoking Tobacco: Never Assessed Sex Assigned at Date Recorded Not on file documented as of this encounter Plan of Treatment Scheduled Referrals Name Type Priority Associated Diagnoses Order [facility] Referral Routine: Next related Expe cted: Referral - available opening condition 11/09/2021 (Approximate), Expires: 05/08/2022 documented as of this encounter Results MFM Read Screen Echo Single (01/03/2022 2:33 PM [...] CONDE Study Date: 01/03/2022 1:18pm Pat. NO: [id number] Referring ??MD: ISSAC MUÑOZ Site: [facility] Conveyor Tender: Briana Thapa RDMS : 1975 Age: 46 INDICATION In vitro fertilization METHOD Grayscale imaging, Doppler echocardiogra phy color flow velocity mapping and Doppler echocardiography pulsed wave and or wave with spectral display were used to assess cardiac structures for bryon vazquez [facility] echocardiogram. View: Sufficient Britton . Number of fetuses: 1 [...] RVOT view ?normal 3-vessel view ? normal 2-rhjghe-trglrin view ? normal High short axis view [...] annulus syst ? 3.0 ?mm ?-0.92 ? Pizano RECOMMENDATION Thank-you for referring your patient for [...] Pat. Name:Keisha CONDE Date: 1:18pm Pat. NO: [id number] MD:NEO QUESADA [facility]PETE Lorenzo :1975Age:46 INDICATION In vitro fertilization METHOD Grayscale imaging, Doppler echocardiogra phy color flow velocity mapping and Doppler echocardiography pulsed wave and or wave with spectral display were used to assess cardiac structures for bryon vazquez [facility] echocardiogram. View: Sufficient Britton . Number of fetuses: 1 [...] normal RVOT view normal 3-vessel view normal 7-rpiglg-dkynpqk view normal High short axis view normal [...] by TV annulus diast 5.6 mm -1.18 Schneide r MV annulus diast 6.0 mm -0.67 Schneide r PV annulus syst 3.8 mm -0.54 Pizano AoV annulus syst 3.0 mm -0.92 Schneide r RECOMMENDATION Thank-you for referring your patient for [...] also may not be seen. Neo Quesada [facility] US ORDERABLES [facility] Comprehensive [facility] (12/12/2021 12:31 PM CDT) Anatomical Region Laterality [...] CONDE Study Date: 12/12/2021 11:32am Pat. NO: [id number] Referring ??: ISSAC MUÑOZ Site: [facility] Conveyor Tender: Nori Washington RD MS : 1975 Age: [...] lb 12 ? oz EFW by ?Hadlock ([id number]) Head / Face / Neck Biometry: Automatic Equipment Technician ? 7.5 ? mm CM ?5.9 ? [...] cava. Inferior vena cava. 3-vessel ? view. 5-hziifn-pgbihaf view. Cardiac position. Cardiac size. Cardiac rhythm. [...] reviewed precautions. We discussed retur mallory to [facility] in 3 weeks for a echo [...] Thank you for the opportunity to partici moreira in the care of this patient. If you have questions regarding today's evaluation or if we can be of further service, please contact the [facility]. anomalies may be present but not detected Procedure Note Ana Arreaga, DO - 12/12/2021 Comprehensive Pat. Name:Keisha CONDE Date: 11:32am Pat. NO: [id number] MD:NEO CHASE QUESADA [facility]Nori Washington RDMS :1975Age:46 INDICATION In Vitro Fertilization, [...] 0 lb 12 oz EFW by Hadlock ([id number]) Head / Face / Neck Biometry: Automatic Equipment Technician 7.5 mm CM 5.9 mm Nasal bone [...] vena cava. Inferior vena cava. 3-vessel view. 1-avvnel-lohbtvk view. Cardiac po sition. Cardiac size. Cardiac [...] reviewed precautions. We discussed retur mallory to [facility] in 3 weeks for a echo [...] is an anterior placenta previa. Neo Quesada [facility] US ORDERABLES documented in this encounter Visit Diagnoses Diagnosis related condition - Primary Unspecified complication of , u nspecified as to episode of care related condition Unspecified complication of , u nspecified as to episode of care related condition Unspecified complication of , u nspecified as to episode of care documented in this encounter
--- OUTSIDE RECORDS SUMMARY | 2022-02-12 09:51 | XMS_ITS | Encounter Summary ---
:1975 Author Organization [facility] Address [address] [place] [address] Care Team Providers Name Role Phone Unavailable Primary Care Provider Unavailable Encounter Details Date Type Department Care Team Description 12/12/2021 Travel Social History Tobacco Use Types Packs/Day [...]
--- OUTSIDE RECORDS SUMMARY | 2022-02-12 09:51 | XMS_ITS | Encounter Summary ---
:1975 Author Organization [facility] Address [address] [place] [address] Care Team Providers Name Role Phone Unavailable Primary Care Provider Unavailable Reason for Visit Reason Comments Ultrasound L2-IVF Encounter Details Date Type Department Care Team Description 12/12/2021 Office Visit [facility] Lance Zavala [address] [address] Placenta previa in second trimester (Corina cat Dx); Maternal Ana Arreaga DO [address] [place] [address] [address] [place] [address] Uterine fibroids affecting in second trimester [facility] [place] [address] [facility] [address] [place] [address] Social History Tobacco Use Types Packs/Day Years Used Date Smoking Tobacco: Never Assessed Sex Assigned at Date Recorded Not on file COVID-19 Exposure Response Date Recorded In the last 10 days, have you been in contact with No / Unsu re 12/12/2021 11:30 AM CDT someone who was confirmed or suspected to have Coronavirus/COVID-19? documented as of this encounter Progress Notes Ana Arreaga DO - 12/12/2021 12:15 PM CDT Please see Imaging tab under Chart Review for details of today's US. Ana Arreaga DO documented in this encounter Plan of Treatment Not on filedocumented as of this encounter Visit Diagnoses Diagnosis Placenta previa in second trimester - Pr imary Uterine fibroids affecting in second trimester documented in this encounter
--- OUTSIDE RECORDS SUMMARY | 2022-02-12 09:51 | XMS_ITS | Encounter Summary ---
:1975 Author Organization [facility] Address [address] [place] [address]. [place] [address] Care Team Providers Name Role Phone Unavailable Primary Care Provider Unavailable Encounter Details Date Type Department Care Team Description 11/08/2021 Medical Correspondence [facility] Scan, MATERNAL Health Info Mgmt Non-Provider MEDICINE CE NTER Srvcs PROVIDER SERVICE [address] [place] [address] [place] [address] Social History Tobacco Use Types Packs/Day Years Used Date Smoking Tobacco: Never Assessed Sex Assigned at Date Recorded Not on file documented as of this encounter Plan of Treatment Not on filedocumented as of this encounter Visit Diagnoses Not on filedocumented in this encounter
--- OUTSIDE RECORDS SUMMARY | 2022-02-12 09:51 | XMS_ITS | Encounter Summary ---
:1975 Author Organization [place] Address [address] [place] [address] Care Team Providers Name Role Phone Unavailable Primary Care Provider Unavailable Reason for Visit Reason Comments Ultrasound MFM ECHO-IVF Encounter Details Date Type Department Care Team Description 01/03/2022 Office Visit [facility] Lance Quesada [address] [address] resulting Maternal Ana Arreaga DO [address] [facility] [address] [facility] [address] [place] [address] from in vitro Medicine Center fertilizatio n in [place] second trimester [address] (Primary Dx) [address] [place] [address] Social History Tobacco Use Types [...] encounter Progress Notes Ana Arreaga DO - 01/03/2022 2:00 PM CDT Please see Imaging tab under Chart Review for details of today's US. Ana Arreaga DO documented in this encounter Plan of Treatment Not on filedocumented as of this encounter Visit Diagnoses Diagnosis resulting from in vitro fertil ization in second trimester - Primary documented in this encounter
== END 2022-02-12 09:44 | disposition home or self-care (01) ==
LOC: US 09:44
PROVIDERS: PCP Family Medicine; Visit Provider Obstetrics & Gynecology
DX: O44.43 Low lying placenta NOS or without hemorrhage, third trimester (principal); O09.523 Supervision of elderly multigravida, third trimester; Z3A.28 28 weeks gestation of pregnancy; Z36.89 Encounter for other specified antenatal screening
CPT/HCPCS: 76816; 76817; 86592; 86850

== ENCOUNTER 2022-03-14 08:31 | Outpatient (CLI) | payer BC, SELFPAY ==
--- OUTSIDE RECORDS SUMMARY | 2022-03-14 08:33 | XMS_ITS | Encounter Summary ---
:1975 Author Organization [place] Address [address] [place] [address] Care Team Providers Name Role Phone Unavailable Primary Care Provider Unavailable Reason for Referral Diagnostic Imaging Ultrasound (Routine) - Pending Review Specialty Diagnoses / Procedures Referred By Contact Refer red To Contact Diagnoses related condition Neo Zavala Procedures [facility] Read Screen Echo [facility] [address] [place] [address] Referral ID Status Reason Start Date Expiration Date Visits V isits Requested Authorized [id number] Pending 11/09/2021 11/09/2022 1 1 Review Diagnostic Imaging Ultrasound (Routine) - Pending Review Specialty Diagnoses / Procedures Referred By Contact Refer red To Contact Diagnoses related condition Neo Zavala Procedures [facility] [address] [place] [address] Referral ID Status Reason Start Date Expiration Date Visits V isits Requested Authorized [id number] Pending 11/09/2021 11/09/2022 1 1 Review Consultation (Routine: Next available opening) - Pending Review Specialty Diagnoses / Procedures Referred By Contact Refer red To Contact Diagnoses related condition Neo Zavala Rh Maternal Med [facility] [address] [address] [place] [address] Phone: Fax: Referral ID Status Reason Start Date Expiration Date Visits V isits Requested Authorized [id number] Pending 11/09/2021 11/09/2022 1 1 Review Encounter Details Date Type Department Care Team Description 11/09/2021 Transcribe Orders [facility] Danay Quesada, Pregn rosanna related Maternal Neo James condition (Primary Medicine Center [facility] Dx) [facility] [address] [facility] [address] [place] [address] Social History Tobacco Use Types Packs/Day [...] CONDE Study Date: 01/03/2022 1:18pm Pat. NO: [id number] Referring ??MD: ISSAC MUÑOZ Site: [facility] Field Coordinator: Briana Thapa RDMS : 1975 Age: 46 INDICATION In vitro fertilization METHOD Grayscale imaging, Doppler echocardiogra phy color flow velocity mapping and Doppler echocardiography pulsed wave and or wave with spectral display were used to assess cardiac structures for bryon vazquez [facility] echocardiogram. View: Sufficient Britton . Number of [...] RVOT view ?normal 3-vessel view ? normal 5-bmzkxn-vatglch view ? normal High short axis view [...] Ana Arreaga, DO - 01/03/2022 Echo Pat. Name:Tereza CONDEbeatrice Date: 1:18pm Pat. NO: [id number] MD:NEO QUESADA [facility]PETE Lorenzo :1975Age:46 INDICATION In vitro fertilization METHOD Grayscale imaging, Doppler echocardiogra phy color flow velocity mapping and Doppler echocardiography pulsed wave and or wave with spectral display were used to assess cardiac structures for bryon vazquez [facility] echocardiogram. View: Sufficient Britton . Number of [...] normal RVOT view normal 3-vessel view normal 4-ojqdal-kcyboci view normal High short axis view normal [...] also may not be seen. Neo Quesada [facility] ORDERABLES [facility] Comprehensive [facility] (12/12/2021 12:31 PM CDT) Anatomical Region Laterality [...] CONDE Study Date: 12/12/2021 11:32am Pat. NO: [id number] Referring ??: ISSAC MUÑOZ Site: [facility] Field Coordinator: Nori Washington RD MS : 1975 Age: [...] lb 12 ? oz EFW by ?Hadlock ([id number]) Head / Face / Neck Biometry: Model Artists' ? 7.5 ? mm CM ?5.9 ? [...] cava. Inferior vena cava. 3-vessel ? view. 6-ycqqmz-qzusroj view. Cardiac position. Cardiac size. Cardiac rhythm. [...] RECOMMENDATION We discussed the findings on today's ulelif rivas with the patient. conceived via IVF with donor e gg/donor sperm. Had PGD which was normal. Patient is on a baby ASA. Discussed the findings of the placenta previa and reviewed precautions. We discussed retur mallory to [facility] in 3 weeks for a echo due [...] Pat. Name:Keisha CONDE Date: 11:32am Pat. NO: [id number] :NEO CHASE [place] [facility]Nori Washington RDMS :1975Age:46 INDICATION In [...] 0 lb 12 oz EFW by Hadlock ([id number]-FL) Head / Face / Neck Biometry: Model Artists' 7.5 mm CM 5.9 mm Nasal bone [...] vena cava. Inferior vena cava. 3-vessel view. 0-jxhuiw-todbtmy view. Cardiac po sition. Cardiac size. Cardiac [...] We discussed the findings on today's ult rasdelfina with the patient. conceived via IVF with donor e gg/donor sperm. Had PGD which was normal. Patient is on a baby ASA. Discussed the findings of the placenta previa and reviewed precautions. We discussed retur mallory to [facility] in 3 weeks for a echo due [...] is an anterior placenta previa. Neo Quesada [facility] US ORDERABLES documented in this encounter Visit Diagnoses Diagnosis related condition - Primary Unspecified complication of , u nspecified as to episode of care related condition Unspecified complication of , u nspecified as to episode of care related condition Unspecified complication of , u nspecified as to episode of care documented in this encounter
--- OUTSIDE RECORDS SUMMARY | 2022-03-14 08:33 | XMS_ITS | Encounter Summary ---
:1975 Author Organization [place] Address [address] [place] [address] Care Team Providers Name Role Phone Unavailable Primary Care Provider Unavailable Reason for Referral Diagnostic Imaging Ultrasound (Routine) - Pending Review Specialty Diagnoses / Procedures Referred By Contact Refer red To Contact Diagnoses related condition Neo Zavala Procedures [facility] [address] [place] [address] Referral ID Status Reason Start Date Expiration Date Visits V isits Requested Authorized [id number] Pending 11/09/2021 11/09/2022 1 1 Review Reason for Visit Diagnostic Imaging Ultrasound (Routine) - Pending Review Specialty Diagnoses / Procedures Referred By Contact Refer red To Contact Diagnoses related condition Neo Zavala Procedures [facility] [address] [place] [address] Referral ID Status Reason Start Date Expiration Date Visits V isits Requested Authorized [id number] Pending 11/09/2021 11/09/2022 1 1 Review Encounter Details Date Type Department Care Team Description 12/12/2021 Hospital Encounter [facility] Neo Zavala [facility] [address] [place] [address] related Maternal Ana Arreaga DO [address] [facility] [address] [place], [place] [address] [facility] [address] [place] [address] Social History Tobacco Use Types [...] Procedure Name Priority Date/Time Associated Comments Diagnosis [facility] US COMPREHENSIVE Routine 12/12/2021 12:31 relate d Results for this SINGLE PM CDT condition procedure are i n the results section. documented in this encounter Results [facility] US Comprehensive Single (12/12/2021 12:31 PM [...] CONDE Study Date: 12/12/2021 11:32am Pat. NO: [id number] Referring ??MD: ISSAC MUÑOZ Site: [facility] Gluing Machine Operator Electronic: Nori Washington RD MS : 1975 Age: [...] lb 12 ? oz EFW by ?Hadlock ([id number]-FL) Head / Face / Neck Biometry: Lead Janitor ? 7.5 ? mm CM ?5.9 ? [...] cava. Inferior vena cava. 3-vessel ? view. 6-cdwysc-cxtbeak view. Cardiac position. Cardiac size. Cardiac rhythm. [...] reviewed precautions. We discussed retur mallory to [facility] in 3 weeks for a [...] but not detected Procedure Note Ana Arreaga, - 12/12/2021 Comprehensive Pat. Name:Keisha CONDE Date: 11:32am Pat. NO: [id number] MD:NEO CHASE TOUSSAINT Site:[facility]ographer:Nori WashingtonFERMÍN :1975Age:46 INDICATION In Vitro Fertilization, normal PGT. [...] 0 lb 12 oz EFW by Hadlock ([id number]-FL) Head / Face / Neck Biometry: Lead Janitor 7.5 mm CM 5.9 mm Nasal bone [...] vena cava. Inferior vena cava. 3-vessel view. 7-jtfydi-rwxgyxv view. Cardiac po sition. Cardiac size. Cardiac [...] RECOMMENDATION We discussed the findings on today's [facility] rasound with the patient. conceived via IVF with donor e gg/donor sperm. Had PGD which was normal. Patient is on a baby ASA. Discussed the findings of the placenta previa and reviewed precautions. We discussed retur mallory to [facility] in 3 weeks for a [...] is an anterior placenta previa. Neo Toussaint [facility] US ORDERABLES documented in this encounter Visit Diagnoses Diagnosis related condition Unspecified complication of , u nspecified as to episode of care documented in this encounter
--- OUTSIDE RECORDS SUMMARY | 2022-03-14 08:33 | XMS_ITS | Encounter Summary ---
:1975 Author Organization [place] Address [address] [place], [place] [address] Care Team Providers Name Role Phone Unavailable [...]
--- OUTSIDE RECORDS SUMMARY | 2022-03-14 08:33 | XMS_ITS | Clinical Summary ---
:1975 Author Organization [employer] [place] [address] Care Team Providers Name Role Phone Erin Lockett MD Primary Care Provider [phone] Allergies No known active allergies Medications Medication [...] Comments Blood Pressure 100/78 06/13/2021 12:15 PM TIRE CORD WEAVER Pulse 80 06/13/2021 12:30 PM TIRE CORD WEAVER Temperature 37 ??C (98.6 ??F) 06/13/2021 12:30 PM TIRE CORD WEAVER Respiratory Rate 16 06/13/2021 12:15 PM TIRE CORD WEAVER Oxygen Saturation 98% 06/13/2021 12:30 PM TIRE CORD WEAVER Inhaled Oxygen Concentration - - Weight 66.2 kg (146 lb) 06/13/2021 9:22 AM TIRE CORD WEAVER Height 162.6 cm (5' 4) 06/13/2021 9:22 AM TIRE CORD WEAVER Body Mass Index 25.06 06/13/2021 9:22 AM TIRE CORD WEAVER Plan of Treatment Health Maintenance Due Date Last Done Comments Hepatitis C screening for age 1002/28/1993 18-79 Colonoscopy through age 75 02/29/2020 BMI (ht and wt on same day) for 03/18/2020 03/18/2019, 12/05, age 18+ 05/19/2018, Additional history exists Mammogram for age 45-75 06/25/2020 06/25/2019, 04/03/2018, 05/31/2015 COVID-19 vaccine series (4 - 05/17/2021 03/22/2021, 021, Booster for Moderna series) 08/16/2020 Tetanus booster 10/16/2021 10/17/2011, 03/04/2002 Influenza for age 9-49 01/04/2022 02/17/2021, 02/16/2020, 02/11/2019, Additional history exists Depression screening for age 12+ 06/02/2022 06/02/2021, 12/2018, 06/04/2017, Additional history exists Lipids for age 45-75 04/03/2023 04/03/2018, 10/08/2013, 05/19/2010 Pap test for age 21-65 08/24/2025 08/24/2020, 08/24/2020, 06/14/2016, Additional history exists Tdap Completed 10/17/2011 Results Not on filefrom Last 3 Months Insurance Payer Benefit Plan / Subscriber ID Effective Dates Phone Addre ss Type Group BLUE CROSS BLUE CROSS OF [id number] 2016-Present [address] [place] [address] (Work) Advance Directives Latest Code Status on File Code Status Date Activated Date Inactivated Comments Full Code 06/13/2021 8:58 AM 06/13/2021 2:59 PM Code Status Discussion: Unable to Assess Preferences, Provid er to review later Care Teams Template Layout Worker Relationship Specialty Start Date End Date Erin Lockett MD PCP - General Family Practice 05/24/211999 [place] [address]
--- OUTSIDE RECORDS SUMMARY | 2022-03-14 08:33 | XMS_ITS | Encounter Summary ---
:1975 Author Organization [place] Address [address] [place] [address] Care Team Providers Name Role Phone Unavailable Primary Care Provider Unavailable Reason for Referral Diagnostic Imaging Ultrasound (Routine) - Pending Review Specialty Diagnoses / Procedures Referred By Contact Refer red To Contact Diagnoses related condition Neo Zavala Procedures MFM Read Screen Echo [facility] [address] [place] [address] Referral ID Status Reason Start Date Expiration Date Visits V isits Requested Authorized [id number] Pending 11/09/2021 11/09/2022 1 1 Review Reason for Visit Diagnostic Imaging Ultrasound (Routine) - Pending Review Specialty Diagnoses / Procedures Referred By Contact Refer red To Contact Diagnoses related condition Neo Zavala Procedures MFM Read Screen Echo [facility] [address] [place] [address] Referral ID Status Reason Start Date Expiration Date Visits V isits Requested Authorized [id number] Pending 11/09/2021 11/09/2022 1 1 Review Encounter Details Date Type Department Care Team Description 01/03/2022 Hospital Encounter M [facility] Neo Zavala [facility] [address] [place] [address] related Maternal Ana Arreaga DO [address] [id number] condition Medicine [facility] [place] [address] [facility] [address] [place] [address] Social History Tobacco Use Types [...] Name Priority Date/Time Associated Diagnosis Comme nts [facility] READ SCREENING Routine 01/03/2022 2:33 PM relate d Results for this ECHO CDT condition procedure are i n DEMPSEY the results section. documented in this encounter Results [facility] Read Screen Echo Single (01/03/2022 2:33 PM [...] CONDE Study Date: 01/03/2022 1:18pm Pat. NO: [id number] Referring ??MD: ISSAC MUÑOZ Site: [facility] Metal Trim Erector: Briana Thapa RDMS : 1975 Age: 46 INDICATION In vitro fertilization METHOD Grayscale imaging, Doppler echocardiogra phy color flow velocity mapping and Doppler echocardiography pulsed wave and or wave with spectral display were used to assess cardiac structures for bryon vazquez [facility] echocardiogram. View: Sufficient Dempsey . Number of [...] RVOT view ?normal 3-vessel view ? normal 3-aexigx-dxxohef view ? normal High short axis view [...] Pat. Name:Keisha CONDE Date: 1:18pm Pat. NO: [id number] MD:NEO Beatty [facility]PETE Lorenzo :1975Age:46 INDICATION In vitro fertilization METHOD Grayscale imaging, Doppler echocardiogra phy color flow velocity mapping and Doppler echocardiography pulsed wave and or wave with spectral display were used to assess cardiac structures for bryon vazquez [facility] echocardiogram. View: Sufficient Dempsey . Number of [...] normal RVOT view normal 3-vessel view normal 7-xvthjo-qvcxhpv view normal High short axis view normal [...] defects also may not be seen. Neo Jon Quesada [facility] US ORDERABLES documented in this encounter Visit Diagnoses Diagnosis related condition Unspecified complication of , u nspecified as to episode of care documented in this encounter
--- OUTSIDE RECORDS SUMMARY | 2022-03-14 08:33 | XMS_ITS | Encounter Summary ---
:1975 Author Organization [place] Address [address] [place] [address]. [place] [address] Care Team Providers Name Role Phone Unavailable Primary Care Provider Unavailable Encounter Details Date Type Department Care Team Description 11/08/2021 Medical Correspondence [facility] Scan, MATERNAL Health Info Mgmt Non-Provider MEDICINE CE NTER [facility] PROVIDER SERVICE [address] [place] [address] [place] [address] Social History Tobacco Use Types Packs/Day Years Used Date Smoking Tobacco: Never Assessed Sex Assigned at Date Recorded Not on file documented as of this encounter Plan of Treatment Not on filedocumented as of this encounter Visit Diagnoses Not on filedocumented in this encounter
--- OUTSIDE RECORDS SUMMARY | 2022-03-14 08:33 | XMS_ITS | Clinical Summary ---
:1975 Author Organization [place] Address [address] [place] [address] Care Team Providers Name Role Phone Unavailable Primary Care Provider Unavailable Encounters Date Type Specialty Care Team Description 01/03/2022 Office Visit Maternal and Danay Toussaint, resulting Medicine Neo A from in vitro Ana Arreaga fertilizat ion in DO sharath Narvaez trimeste r (Primary Dx) 01/03/2022 Hospital Encounter Radiology. Danay Toussaint related Neo A condition Ana Arreaga DO 01/03/2022 Travel 12/12/2021 Office Visit Maternal and Danay Toussaint, Placenta previa in second trimester (Primary Dx); Medicine Neo A Uterine fibroids affecting in second trimester Ana Arreaga DO 12/12/2021 Hospital Encounter Radiology. Danay Toussaint related Neo A condition Ana Arreaga DO 12/12/2021 PRE VISIT Maternal and Heather Ultrasoun d (L2-IVF) Medicine DON Ferreira 12/12/2021 Travel [...] ANTIBODY SCREEN (OB) 02/10/2022 HEPATITIS B IMMUNIZATION Completed 12/10/2002, 04/14/2002, 03/04/2002 IPV IMMUNIZATION Aged Out 09/26/2006 No longer [...] Procedure Name Priority Date/Time Associated Comments Diagnosis [facility] READ SCREENING Routine 01/03/2022 2:33 PM relate d Results for this ECHO DEMPSEY CDT condition procedu re are in the results section. [facility] US COMPREHENSIVE Routine 12/12/2021 12:31 relate d Results for this SINGLE PM CDT condition procedure are i n the results section. from Last 3 Months Results [facility] Read Screen Echo Single (01/03/2022 2:33 [...] CONDE Study Date: 01/03/2022 1:18pm Pat. NO: [id number] Referring ??MD: ISSAC MUÑOZ Site: [facility] Salvage Engineer: Briana Thapa RDMS : 1975 Age: 46 INDICATION In vitro fertilization METHOD Grayscale imaging, Doppler echocardiogra phy color flow velocity mapping and Doppler echocardiography pulsed wave and or wave with spectral display were used to assess cardiac structures for bryon vazquez [facility] echocardiogram. View: Sufficient Dempsey . Number [...] RVOT view ?normal 3-vessel view ? normal 3-prgbme-vwiwvaq view ? normal High short axis view [...] Pat. Name:Keisha CONDE Date: 1:18pm Pat. NO: [id number] MD:NEO TOUSSAINT Site:[place]ographer:Briana Thapa [facility] S :1975Age:46 INDICATION In vitro fertilization METHOD Grayscale imaging, Doppler echocardiogra phy color flow velocity mapping and Doppler echocardiography pulsed wave and or wave with spectral display were used to assess cardiac structures for bryon vazquez [facility] echocardiogram. View: Sufficient Dempsey . Number [...] normal Cardiac size normal (approx. 1/[address] [facility] area) Cardiac Rhythm regular (normal) 4-chamber view normal LVOT view normal RVOT view normal 3-vessel view normal 2-eknicj-ljlzjnt view normal High short axis view normal [...] defects also may not be seen. Neo Toussaint IMG [facility] US ORDERABLES [facility] US Comprehensive Single (12/12/2021 12:31 PM [...] CONDE Study Date: 12/12/2021 11:32am Pat. NO: [id number] Referring ??MD: ISSAC MUÑOZ Site: [facility] Salvage Engineer: Nori Washington RD MS : 1975 Age: [...] lb 12 ? oz EFW by ?Hadlock ([id number]) Head / Face / Neck Biometry: Air Cargo Specialist Supervisor ? 7.5 ? mm CM ?5.9 ? [...] cava. Inferior vena cava. 3-vessel ? view. 6-akbspm-rkwjrjg view. Cardiac position. Cardiac size. Cardiac rhythm. [...] reviewed precautions. We discussed retur mallory to [facility] in 3 weeks for a echo [...] Procedure Note Ana Arreaga, - 12/12/2021 Comprehensive Caroline. Name:Tereza CONDEbeatrice Date: 11:32am Pat. NO: [id number] :NEO CHASE [place] [facility]Nori Washington RDMS :1975Age:46 INDICATION In Vitro Fertilization, [...] 0 lb 12 oz EFW by Hadlock ([id number]) Head / Face / Neck Biometry: Air Cargo Specialist Supervisor 7.5 mm CM 5.9 mm Nasal bone [...] vena cava. Inferior vena cava. 3-vessel view. 5-mbovta-eyjhedm view. Cardiac po sition. Cardiac size. Cardiac [...] Appears Closed Approach - Transabdominal: Cervical moe gt 43.4 mm Right Ovary Visualized Left Ovary Visualized RECOMMENDATION We discussed the findings on today's ult rasound with the patient. conceived via IVF with donor e gg/donor sperm. Had PGD which was normal. Patient is on a baby ASA. Discussed the findings of the placenta previa and reviewed precautions. We discussed retur mallory to [facility] in 3 weeks for a echo [...] is an anterior placenta previa. Neo Toussaint IMIvet [facility] US ORDERABLES from Last 3 Months Insurance Payer Benefit Plan / Subscriber ID Effective Dates Phone Addre ss Type Group BC[place] [id number] 2021-Mandie [phone] [address] [address] Indemnity t 0 [place] [address]
--- OUTSIDE RECORDS SUMMARY | 2022-03-14 08:33 | XMS_ITS | Encounter Summary ---
:1975 Author Organization [place] Address [address] [place] [address] Care Team Providers Name Role Phone Unavailable Primary Care Provider Unavailable Reason for Visit Reason Comments Ultrasound MFM ECHO-IVF Encounter Details Date Type Department Care Team Description 01/03/2022 Office Visit [facility] Lance Zavala [address] [address] resulting Maternal Ana Arreaga DO [address] [address] from in vitro Medicine Center fertilizatio n in [place] second trimester [address] (Primary Dx) [address] [place] [address] Social History Tobacco Use Types [...]
--- OUTSIDE RECORDS SUMMARY | 2022-03-14 08:33 | XMS_ITS | Encounter Summary ---
:1975 Author Organization [place] Address [address] [place], [place] [id number] Care Team Providers Name Role Phone Unavailable [...]
--- OUTSIDE RECORDS SUMMARY | 2022-03-14 08:33 | XMS_ITS | Encounter Summary ---
:1975 Author Organization [place] Address [address] [place] [address] Care Team Providers Name Role Phone Unavailable Primary Care Provider Unavailable Reason for Visit Reason Comments Ultrasound L2-IVF Encounter Details Date Type Department Care Team Description 12/12/2021 Office Visit [facility] Lance Zavala [address] [address] Placenta previa in second trimester (Corina cat Dx); Maternal Ana Arreaga DO [address] [place] [address] Uterine fibroids affecting in second trimester [facility] [place] [address] [facility] [address] [place] [address] Social History Tobacco Use Types [...]
--- OUTSIDE RECORDS SUMMARY | 2022-03-14 08:33 | XMS_ITS | Encounter Summary ---
:1975 Author Organization [place] Address [address] [place] [address] Care Team Providers Name Role Phone Unavailable Primary Care Provider Unavailable Reason for Visit Reason Comments Ultrasound L2-IVF Encounter Details Date Type Department Care Team Description 12/12/2021 PRE VISIT [facility] Hanna Romero Ult rasound (L2-IVF) Maternal Medicine RN [place] [address] [address] [facility] [address] [place] [address] Social History Tobacco Use [...]
--- NOTE | 2022-03-14 08:45 | CRLHL7_ITS ---
For Patients: As a result of the Century Cures Act, medical imaging exams and procedure reports are released immediately into your electronic medical record. You may view this report before your referring provider. If you have questions, please contact your health care provider. INDICATION: female. Evaluate weight. TECHNIQUE: Transabdominal obstetrical ultrasound. COMPARISON: February 12, 2022. FINDINGS: Single living intrauterine in vertex presentation. Anterior placenta. heart rate 161 beats per minute. Normal amniotic fluid volume. Single deepest pocket measurement 6.8 cm. Biparietal diameter 8.5 cm, 34 weeks 1 day, 86th percentile. Head circumference 32.6 cm, 37 weeks 0 days, greater than the 97th percentile. Abdominal circumference 30.1 cm, 34 weeks 1 day, 88th percentile. Femur length 6.4 cm, 32 weeks 6 days, 41st percentile. Composite calculated ultrasound age 34 weeks 4 days with a sonographic due date of April 21, 2022. This is 2 weeks ahead of the age based on the LMP provided. Estimated weight 2334 g which lies at the 84th percentile. The head to abdominal circumference ratio is 1.08 (0.94-1.11). Femur length to abdominal circumference ratio is normal at 21.1 (20.0-24.0. There are two uterine fibroids, one inferiorly measuring 1.3 x 1.2 x 2.7 cm and the other anteriorly measuring 3.1 x 1.5 x 3.5 cm. IMPRESSION: Composite calculated ultrasound age 34 weeks 4 days with a sonographic due date of April 21, 2022. Estimated weight lies at the 84th percentile. Dictated by Garcia Frederick MD @ 03/14/2022 11:08:44 AM (Electronically Signed)
== END 2022-03-14 08:32 | disposition home or self-care (01) ==
PROVIDERS: PCP Family Medicine; Visit Provider Obstetrics & Gynecology
DX: Z34.93 Encounter for supervision of normal pregnancy, unspecified, third trimester (principal); Z3A.32 32 weeks gestation of pregnancy
CPT/HCPCS: 76816

== ENCOUNTER 2022-04-09 08:54 | Outpatient (CLI) | payer BC, SELFPAY ==
--- NOTE | 2022-04-09 08:45 | CRLHL7_ITS ---
For Patients: As a result of the Century Cures Act, medical imaging exams and procedure reports are released immediately into your electronic medical record. You may view this report before your referring provider. If you have questions, please contact your health care provider. INDICATION: Advanced maternal age COMPARISON: 03/14/2022 TECHNIQUE: Real time ellis scale imaging of the fetus was performed. Without non-stress testing. FINDINGS: Sonographic imaging demonstrates a single living intrauterine gestation. Fetus demonstrates a regular cardiac rate of 137 beats per minute. Fetus has a vertex position. The amniotic fluid volume appears normal and there is a single deepest pocket measurement of 5.9 cm. Hypoechoic foci within the amniotic fluid. The fetus was active and demonstrated normal breathing movements. There was normal flexion and extension of the trunk and extremities. Anterior uterine fibroid measuring 2.6 x 1.2 x 3.0 cm. IMPRESSION: Normal biophysical profile score of 8 out of 8. Normal amniotic fluid volume. Hypoechoic debris present within the amniotic fluid. Anterior uterine fibroid measuring 3.0 cm. Dictated by Twan Pickens MD @ 04/09/2022 10:07:08 AM (Electronically Signed)
== END 2022-04-09 08:55 | disposition home or self-care (01) ==
LOC: US 08:56
PROVIDERS: PCP Family Medicine; Visit Provider Advanced Practice Midwife
DX: O09.513 Supervision of elderly primigravida, third trimester (principal)
CPT/HCPCS: 76819; 87081; 87653

== ENCOUNTER 2022-04-16 08:09 | Outpatient (CLI) | payer BC, SELFPAY ==
--- OUTSIDE RECORDS SUMMARY | 2022-04-16 08:11 | XMS_ITS | Encounter Summary ---
:1975 Author Organization [place] Address [address] [place] [address] Care Team Providers Name Role Phone Unavailable Primary Care Provider Unavailable Reason for Referral Diagnostic Imaging Ultrasound (Routine) - Pending Review Specialty Diagnoses / Procedures Referred By Contact Refer red To Contact Diagnoses related condition Neo Zavala Procedures MFM Read Screen Echo [facility] [address] [place] [address] Referral ID Status Reason Start Date Expiration Date Visits V isits Requested Authorized [id number] Pending 11/09/2021 11/09/2022 1 1 Review Reason for Visit Diagnostic Imaging Ultrasound (Routine) - Pending Review Specialty Diagnoses / Procedures Referred By Contact Refer red To Contact Diagnoses related condition Neo Zavala Procedures MFM Read Screen Echo [facility] [address] [place] [address] Referral ID Status Reason Start Date Expiration Date Visits V isits Requested Authorized [id number] Pending 11/09/2021 11/09/2022 1 1 Review Encounter Details Date Type Department Care Team Description 01/03/2022 Hospital Encounter M [facility] Neo Zavala [facility] [address] [place] [address] related Maternal Ana Arreaga DO [address] [id number] condition [facility] [place] [address] [facility] [address] [place] [address] Social History Tobacco Use Types [...] Name Priority Date/Time Associated Diagnosis Comme nts [facility] READ SCREENING Routine 01/03/2022 2:33 PM relate d Results for this ECHO CDT condition procedure are i n DEMPSEY the results section. documented in this encounter Results [facility] Read Screen Echo Single (01/03/2022 2:33 PM [...] CONDE Study Date: 01/03/2022 1:18pm Pat. NO: [id number] Referring ??MD: ISSAC MUÑOZ Site[facility] Cinetechnician: Briana Thapa RDMS : 1975 Age: 46 INDICATION In vitro fertilization METHOD Grayscale imaging, Doppler echocardiogra phy color flow velocity mapping and Doppler echocardiography pulsed wave and or wave with spectral display were used to assess cardiac structures for bryon vazquez [facility] echocardiogram. View: Sufficient Dempsey . [...] RVOT view ?normal 3-vessel view ? normal 6-ynrpqb-ritnsey view ? normal High short axis view [...] Pat. Name:Keisha CONDE Date: 1:18pm Pat. NO: [id number] MD:NEO Beatty [facility]PETE Lorenzo :1975Age:46 INDICATION In vitro fertilization METHOD Grayscale imaging, Doppler echocardiogra phy color flow velocity mapping and Doppler echocardiography pulsed wave and or wave with spectral display were used to assess cardiac structures for bryon vazquez [facility] echocardiogram. View: Sufficient Dempsey . [...] normal RVOT view normal 3-vessel view normal 8-pzsjud-jvpsyql view normal High short axis view normal [...] may not be seen. Neo Jon Quesada [facility] US ORDERABLES documented in this encounter Visit Diagnoses Diagnosis related condition Unspecified complication of , u nspecified as to episode of care documented in this encounter
--- OUTSIDE RECORDS SUMMARY | 2022-04-16 08:11 | XMS_ITS | Clinical Summary ---
:1975 Author Organization [employer] [facility] [place] [address] Care Team Providers Name Role Phone Erin Lockett MD Primary Care Provider [phone] Allergies No known active allergies Medications [...] Problem Noted Date Allergic rhinitis, cause unspecified Encounters Date Type Specialty Care Team Description 03/26/2022 Telephone Paula Briseno MD E [facility] () from Last 3 Months Immunizations Name Administration Dates Next Due AMB [...] Packs/Day Years Used Date Smoking Tobacco: Never Smokeless Tobacco: Never Tobacco Cessation: Counseling Given: Yes Alcohol Use Standard Drinks/Week Comments Not Currently 2 (1 standard drink = 0.6 oz pure couple glasses of wine a week alcohol) Sex Assigned at Date Recorded Not on file Obstetrics History Para Term AB IAB SAB Ectopic Multiple Living Live Births 0 Last Filed Vital Signs Vital Sign Reading Time Taken Comments Blood Pressure 100/78 06/13/2021 12:15 PM [employer] Pulse 80 06/13/2021 12:30 PM [employer] Temperature 37 ??C (98.6 ??F) 06/13/2021 12:30 PM [employer] Respiratory Rate 16 06/13/2021 12:15 PM [employer] Oxygen Saturation 98% 06/13/2021 12:30 PM [employer] Inhaled Oxygen Concentration - - Weight 66.2 kg (146 lb) 06/13/2021 9:22 AM [employer] Height 162.6 cm (5' 4) 06/13/2021 9:22 AM [employer] Body Mass Index 25.06 06/13/2021 9:22 AM [employer] Plan of Treatment Health Maintenance Due Date Last Done Comments HIV for age 15-65 1990 Hepatitis C screening for age 1002/28/1993 18-79 [...] Type Group [employer]UE [employer]OSS BL[employer] OF [id number] 2016-Present [address] [place] [address] [phone] (Work) Advance Directives Latest Code Status on File Code Status Date Activated Date Inactivated Comments Full Code 06/13/2021 8:58 AM 06/13/2021 2:59 PM Question Answer Comments Code Status Discussion: Unable to Assess Preferences, Provid er to review later Care Teams Subgrade Tester Relationship Specialty Start Date End Date Erin Lockett MD PCP - General Family Practice 05/24/211999 [place] [address]
--- OUTSIDE RECORDS SUMMARY | 2022-04-16 08:11 | XMS_ITS | Encounter Summary ---
:1975 Author Organization [place] Address [address] [place], [place] [id number] Care Team Providers Name Role Phone Unavailable [...]
--- OUTSIDE RECORDS SUMMARY | 2022-04-16 08:11 | XMS_ITS | Clinical Summary ---
:1975 Author Organization [place] Address [address] [place] [address] Care Team Providers Name Role Phone Unavailable Primary Care Provider Unavailable Social History Tobacco Use Types Packs/Day Years [...] (OB) 01/13/2022 REPEAT ANTIBODY SCREEN (OB) 02/10/2022 GROUP B STREP SCREENING 04/07/2022 HEPATITIS B IMMUNIZATION Completed 12/10/2002, 04/14/2002, 03/04/2002 [...] to co mplete this topic 64 Years) Insurance Payer Benefit Plan / Subscriber ID Effective Dates Phone Addre ss Type Group BC[place] [id number] 2021-Mandie [phone] [address] [address] [place] [address] [place] [address]
--- OUTSIDE RECORDS SUMMARY | 2022-04-16 08:11 | XMS_ITS | Encounter Summary ---
:1975 Author Organization [place] Address [address] [place] [address] Care Team Providers Name Role Phone Unavailable Primary Care Provider Unavailable Reason for Visit Reason Comments Ultrasound MFM ECHO-IVF Encounter Details Date Type Department Care Team Description 01/03/2022 Office Visit [facility] Lance Zavala [address] [address] resulting Maternal Ana Arreaga DO [address] [address] from in vitro [facility] fertil[facility] n in [place] second trimester [address] (Primary Dx) [address] [place] [address] Social History Tobacco Use Types [...]
--- OUTSIDE RECORDS SUMMARY | 2022-04-16 08:12 | XMS_ITS | Encounter Summary ---
:1975 Author Organization [place] Address [address] [place] [address] Care Team Providers Name Role Phone Unavailable Primary Care Provider Unavailable Reason for Visit Reason Comments Ultrasound L2-IVF Encounter Details Date Type Department Care Team Description 12/12/2021 PRE VISIT [facility] Hanna Romero Ult rasound (L2-IVF) Maternal Medicine RN [place] [address] [address] [facility] [address] [place] [address] Social History Tobacco Use [...]
--- OUTSIDE RECORDS SUMMARY | 2022-04-16 08:12 | XMS_ITS | Encounter Summary ---
:1975 Author Organization [place] Address [address] [place], [place] [address] Care Team Providers Name Role Phone Unavailable [...]
--- OUTSIDE RECORDS SUMMARY | 2022-04-16 08:12 | XMS_ITS | Encounter Summary ---
:1975 Author Organization [place] Address [address] [place] [address]. [place] [address] Care Team Providers Name Role Phone Unavailable Primary Care Provider Unavailable Encounter Details Date Type Department Care Team Description 11/08/2021 Medical Correspondence [facility] Scan, MATERNAL Health Info Mgmt Non-Provider MEDICINE CE NTER [facility] PROVIDER SERVICE [address] [place] [address] [place] [address] Social History Tobacco Use Types Packs/Day Years Used Date Smoking Tobacco: Never Assessed Sex Assigned at Date Recorded Not on file documented as of this encounter Plan of Treatment Not on filedocumented as of this encounter Visit Diagnoses Not on filedocumented in this encounter
--- OUTSIDE RECORDS SUMMARY | 2022-04-16 08:12 | XMS_ITS | Encounter Summary ---
:1975 Author Organization [place] Address [address] [place] [address] Care Team Providers Name Role Phone Unavailable Primary Care Provider Unavailable Reason for Referral Diagnostic Imaging Ultrasound (Routine) - Pending Review Specialty Diagnoses / Procedures Referred By Contact Refer red To Contact Diagnoses related condition Neo Zavala Procedures [facility] [address] [place] [address] Referral ID Status Reason Start Date Expiration Date Visits V isits Requested Authorized [id number] Pending 11/09/2021 11/09/2022 1 1 Review Reason for Visit Diagnostic Imaging Ultrasound (Routine) - Pending Review Specialty Diagnoses / Procedures Referred By Contact Refer red To Contact Diagnoses related condition Neo Zavala Procedures [facility] [address] [place] [address] Referral ID Status Reason Start Date Expiration Date Visits V isits Requested Authorized [id number] Pending 11/09/2021 11/09/2022 1 1 Review Encounter Details Date Type Department Care Team Description 12/12/2021 Hospital Encounter M [facility] Neo Zavala [facility] [address] [place] [address] related Maternal Ana Arreaga DO [address] [facility] [address] [place], [place] [address] [facility] [address] [place] [address] Social History Tobacco Use Types [...] Procedure Name Priority Date/Time Associated Comments Diagnosis [facility] US COMPREHENSIVE Routine 12/12/2021 12:31 relate d Results for this SINGLE PM CDT condition procedure are i n the results section. documented in this encounter Results [facility] US Comprehensive Single (12/12/2021 12:31 PM CDT) [...] CONDE Study Date: 12/12/2021 11:32am Pat. NO: [id number] Referring ??MD: ISSAC MUÑOZ Site: [facility] Optometric Aide: Nori Washington RD MS : 1975 Age: [...] lb 12 ? oz EFW by ?Hadlock ([id number]) Head / Face / Neck Biometry: Computer Forensic Specialist ? 7.5 ? mm CM ?5.9 ? [...] cava. Inferior vena cava. 3-vessel ? view. 9-ryyyyc-fotzwfr view. Cardiac position. Cardiac size. Cardiac rhythm. [...] reviewed precautions. We discussed retur mallory to [facility] in 3 weeks for a echo due [...] Pat. Name:Keisha CONDE Date: 11:32am Pat. NO: [id number] MD:NEO CHASE TOUSSAINT [facility]:Nori WashingtonFERMÍN :1975Age:46 INDICATION [...] 0 lb 12 oz EFW by Hadlock ([id number]) Head / Face / Neck Biometry: Computer Forensic Specialist 7.5 mm CM 5.9 mm Nasal bone [...] vena cava. Inferior vena cava. 3-vessel view. 9-kckeks-jsehssx view. Cardiac po sition. Cardiac size. Cardiac [...] RECOMMENDATION We discussed the findings on [facility]'s [facility] rasound with the patient. conceived via IVF with donor e gg/donor sperm. Had PGD which was normal. Patient is on a baby ASA. Discussed the findings of the placenta previa and reviewed precautions. We discussed retur mallory to [facility] in 3 weeks for a echo due [...] is an anterior placenta previa. Neo Toussaint [facility] US ORDERABLES documented in this encounter Visit Diagnoses Diagnosis related condition Unspecified complication of , u nspecified as to episode of care documented in this encounter
--- OUTSIDE RECORDS SUMMARY | 2022-04-16 08:12 | XMS_ITS | Encounter Summary ---
:1975 Author Organization [place] Address [address] [place] [address] Care Team Providers Name Role Phone Unavailable Primary Care Provider Unavailable Reason for Referral Diagnostic Imaging Ultrasound (Routine) - Pending Review Specialty Diagnoses / Procedures Referred By Contact Refer red To Contact Diagnoses related condition Neo Zavala Procedures [facility] Read Screen Echo [facility] [address] [place] [address] Referral ID Status Reason Start Date Expiration Date Visits V isits Requested Authorized [id number] Pending 11/09/2021 11/09/2022 1 1 Review Diagnostic Imaging Ultrasound (Routine) - Pending Review Specialty Diagnoses / Procedures Referred By Contact Refer red To Contact Diagnoses related condition Neo Zavala Procedures [facility] [address] [place] [address] Referral ID Status Reason Start Date Expiration Date Visits V isits Requested Authorized [id number] Pending 11/09/2021 11/09/2022 1 1 Review Consultation (Routine: Next available opening) - Pending Review Specialty Diagnoses / Procedures Referred By Contact Refer red To Contact Diagnoses related condition Neo Zavala Rh Maternal Med [facility] [address] [address] [place] [address] Phone: Fax: Referral ID Status Reason Start Date Expiration Date Visits V isits Requested Authorized [id number] Pending 11/09/2021 11/09/2022 1 1 Review Encounter Details Date Type Department Care Team Description 11/09/2021 Transcribe Orders [facility] Danay Quesada, Pregn rosanna related Maternal Neo James condition ([facility] Dx) [facility] [address] [facility] [address] [place] [address] Social History Tobacco Use Types Packs/Day [...] CONDE Study Date: 01/03/2022 1:18pm Pat. NO: [id number] Referring ??MD: ISSAC MUÑOZ Site: [facility] Shaping Machine Tender: Briana Thapa RDMS : 1975 Age: 46 INDICATION In vitro fertilization METHOD Grayscale imaging, Doppler echocardiogra phy color flow velocity mapping and Doppler echocardiography pulsed wave and or wave with spectral display were used to assess cardiac structures for bryon vazquez [facility] echocardiogram. View: Sufficient Britton . Number [...] RVOT view ?normal 3-vessel view ? normal 2-obsxry-svpqcxq view ? normal High short axis view [...] Pat. Name:Tereza CONDEbeatrice Date: 1:18pm Pat. NO: [id number] MD:NEO QUESADA [facility]PETE Lorenzo :1975Age:46 INDICATION In vitro fertilization METHOD Grayscale imaging, Doppler echocardiogra phy color flow velocity mapping and Doppler echocardiography pulsed wave and or wave with spectral display were used to assess cardiac structures for bryon vazquez [facility] echocardiogram. View: Sufficient Britton . Number [...] normal RVOT view normal 3-vessel view normal 7-pahpql-bcchrww view normal High short axis view normal [...] also may not be seen. Neo Quesada [facility] ORDERABLES [facility] (12/12/2021 12:31 PM CDT) Anatomical Region Laterality [...] CONDE Study Date: 12/12/2021 11:32am Pat. NO: [id number] Referring ??: ISSAC MUÑOZ Site: [facility] Shaping Machine Tender: Nori Washington RD MS : 1975 [...] lb 12 ? oz EFW by ?Hadlock ([id number]) Head / Face / Neck Biometry: Senior Receptionist ? 7.5 ? mm CM ?5.9 ? [...] cava. Inferior vena cava. 3-vessel ? view. 7-hzvgka-lcxudzo view. Cardiac position. Cardiac size. Cardiac rhythm. [...] reviewed precautions. We discussed retur mallory to [facility] in 3 weeks for a echo [...] Pat. Name:Keisha CONDE Date: 11:32am Pat. NO: [id number] :NEO CHASE [place] [facility]Nori Washington RDMS :1975Age:46 INDICATION In Vitro [...] 0 lb 12 oz EFW by Hadlock ([id number]) Head / Face / Neck Biometry: Senior Receptionist 7.5 mm CM 5.9 mm Nasal bone [...] vena cava. Inferior vena cava. 3-vessel view. 0-zbxyym-gcifsyf view. Cardiac po sition. Cardiac size. Cardiac [...] reviewed precautions. We discussed retur mallory to [facility] in 3 weeks for a echo [...]
--- OUTSIDE RECORDS SUMMARY | 2022-04-16 08:12 | XMS_ITS | Encounter Summary ---
:1975 Author Organization [place] Address [address] [place] [address] Care Team Providers Name Role Phone Unavailable Primary Care Provider Unavailable Reason for Visit Reason Comments Ultrasound L2-IVF Encounter Details Date Type Department Care Team Description 12/12/2021 Office Visit [facility] Lance Zavala [address] [address] Placenta previa in second trimester (Corina cat Dx); Maternal Ana Arreaga DO [address] [place] [address] Uterine fibroids affecting in second trimester [facility] [place] [address] [facility] [address] [place] [address] Social History Tobacco Use Types [...]
--- NOTE | 2022-04-16 08:15 | CRLHL7_ITS ---
For Patients: As a result of the Century Cures Act, medical imaging exams and procedure reports are released immediately into your electronic medical record. You may view this report before your referring provider. If you have questions, please contact your health care provider. INDICATION: Advanced maternal age COMPARISON: 04/09/2022 TECHNIQUE: Real time ellis scale imaging of the fetus was performed. Without non-stress testing. FINDINGS: Sonographic imaging demonstrates a single living intrauterine gestation. Fetus demonstrates a regular cardiac rate of 131 beats per minute. Fetus has a vertex position. The amniotic fluid volume appears normal and there is a single deepest pocket measurement of 4.6 cm. The fetus was active and demonstrated normal breathing movements. There was normal flexion and extension of the trunk and extremities. IMPRESSION: Normal biophysical profile score of 8 out of 8. Anterior mid uterine fibroid measuring 2.8 x 1.4 x 3.6 cm. Lower uterine fibroid measuring 2.0 x 1.9 x 0.9 cm. Dictated by Twan Pickens MD @ 04/16/2022 9:16:52 AM (Electronically Signed)
== END 2022-04-16 08:10 | disposition home or self-care (01) ==
PROVIDERS: PCP Family Medicine; Visit Provider Advanced Practice Midwife
DX: O09.513 Supervision of elderly primigravida, third trimester (principal); O34.13 Maternal care for benign tumor of corpus uteri, third trimester; Z3A.00 Weeks of gestation of pregnancy not specified
CPT/HCPCS: 76819

== ENCOUNTER 2022-04-23 12:13 | Inpatient (IN) | payer BC, SELFPAY ==
[2022-04-23] VITALS (25 sets, daily range): BP systolic 125–154; BP diastolic 77–93; PULSE 58–91; RESP 14–18; TEMP 36.8–37.1; O2SAT 93–99; BMI 27.6
[2022-04-23 11:16] LABS: Hematocrit 34.1 % (33.0-51.0); Hemoglobin* 11.3 gm/dL (12.0-16.0); Mean Corpuscular HGB Conc 33 gm/dL (32-36); Mean Corpuscular Hemoglobin 30 pg (26-34); Mean Corpuscular Volume 91 fL (80-100); Platelet Count* 259 K/uL (140-440); Red Blood Count 3.76 m/uL (4.00-5.20); White Blood Count* 8.03 K/uL (4.50-11.00)
[2022-04-23 11:29] LABS: Alanine Aminotransferase* 31 U/L (4-35); Aspartate Amino Transferase* 26 U/L (12-35); Blood Urea Nitrogen* 15 mg/dL (5-24); Creatinine* 0.6 mg/dL (0.5-1.5); Estimated Glomerular Filt Rate 111 ml/min
[2022-04-23 12:17] LABS: Creatinine Urine 78.4 mg/dL; Total Protein Urine 15 mg/dL
[2022-04-23] MEDS: miSOPROStoL 25 MCG/0.25 TABLET VAGINAL ×3 (12:54→21:02)
[2022-04-23 12:55] LABS: SARS PCR* Negative SARS-CoV-2 (Negative)
--- NOTE | 2022-04-23 13:20 | PM.OBHPLI ---
OB - H&P: HPI Labor/Induction History of Present Illness Time Seen by Provider: 12:00 Date Seen: 04/23/22 Chief Complaint: Labor induction Chief complaint: Maternity : 1 Para: 0 Indications for induction: induced hypertension Narrative: Elizabeth Werner is a 47 year old female G1 sent from clinic due hypertension. Patient had two elevated BP in clinic 150/80 and 160/104. She was sent to the center for evaluation and her BP was mild ranging 145/91. Denies headaches vision changes, shortness of breath, right upper quadrant pain and rapidly expanding edema. PreE labs wnl with P/Cr of 0.10 Recommended IOL for gestational hypertension. History of Present complications: gestational hypertension Meds Home Medications and Allergies Home Medications Medication Instructions Recorded Confirmed Type aspirin 81 mg tablet,delayed 81 mg PO QDAY 11/08/21 04/23/22 History release (Adult Low Dose Aspirin) calcium carbonate 600 mg calcium 600 mg PO QDAY 11/08/21 04/23/22 History (1,500 mg) tablet (Calcium) prenat.vits,dolores,noe-xawd-cjtvy 1 tab PO QDAY 11/08/21 04/23/22 History cholecalciferol (vitamin D3) 25 63 mcg PO QDAY 12/08/21 04/23/22 History mcg (1,000 unit) capsule cyanocobalamin (vitamin B-12) 500 850 mcg PO DAILY 12/08/21 04/23/22 History mcg tablet iron glycinate 25 mg PO 1XD 12/08/21 04/23/22 History phytosterol 650 mg-vitamin D3 400 830 cap PO QDAY 12/08/21 04/23/22 History unit-fish oil capsule loratadine 10 mg tablet 10 mg PO QDAY 03/14/22 04/23/22 History famotidine 20 mg tablet (Acid 20 mg PO QDAY 04/16/22 04/23/22 History [employer] (famotidine)) Allergies Allergy/AdvReac Type Severity Reaction Status Date / Time No Known Drug Allergies Allergy Verified 04/23/22 10:35 OB - H&P: Exam Physical Exam: Vital signs: Temp Pulse Resp BP Pulse Ox 98.4 F 75 18 134/84 99 04/23/22 13:02 04/23/22 13:04 04/23/22 13:02 04/23/22 13:04 04/23/22 10:04 Narrative: Physical exam: General: No acute distress Psych: Alert and oriented x3, full affect HEENT: Normocephalic, atraumatic Lungs: Unlabored breathing Abdomen: Gravid, soft, no tenderness, rebound, or guarding, no masses, no hepatosplenomegaly, no hernias Lower extremities: No edema or erythema Pelvic exam: SVE 50/-3 OB - Results Labs Labs: Short CBC 04/23/22 Range/Units 11:03 WBC 8.03 (4.50-11.00) K/uL Hgb 11.3 L (12.0-16.0) gm/dL Hct 34.1 (33.0-51.0) % Plt Count 259 (140-440) K/uL BMP 04/23/22 11:03 BUN 15 Creatinine 0.6 Liver Function 04/23/22 Range/Units 11:03 AST 26 (12-35) U/L ALT 31 (4-35) U/L OB - Problem Based A/P Additional Plan (1) Gestational hypertension: Status: Acute (2) Positive GBS test: Status: Acute (3) AMA (advanced maternal age) primigravida 35+: Status: Acute (4) Conceived by in vitro fertilization: Status: Acute Plan Gestational Hypertension ? Based on persistently mild ranging BP and P/C of 0.1 ? Symptoms: none ? Magnesium: currently unindicated ? IV antihypertensives: currently unindicated ? Pre-eclampsia labs on 04/23: Hgb 11.3 Plt 259 Cr 0.6 ALT 26 AST 31 Delivery/Labor/Induction Plan Plan: induction Induction method: per misoprostol protocol
[2022-04-23 15:43] LABS: Slide Review Reflex No
[2022-04-23] MEDS: ACETAMINOPHEN 500 MG TABLET 1000 MG PO (21:11)
[2022-04-23] MEDS: LACTATED RINGERS 1000 ML 1,000 ML 999 ML IV (23:15)
[2022-04-24] VITALS (40 sets, daily range): BP systolic 90–135; BP diastolic 55–83; PULSE 62–82; RESP 14–20; TEMP 36.2–37.1; O2SAT 96–98
[2022-04-24] MEDS: LACTATED RINGERS 1000 ML 1,000 ML 125 ML IV ×3 (00:15→17:21)
[2022-04-24] MEDS: TERBUTALINE 1 MG/ML INJ 0.25 MG SUBCUT ×2 (00:44→03:49)
[2022-04-24] MEDS: LACTATED RINGERS 1000 ML 1,000 ML IV (01:29)
[2022-04-24] MEDS: AMPICILLIN 2 GM in 0.9 % SODIUM CHLORIDE Mini-bag 100 ML IVPB (02:52)
--- NOTE | 2022-04-24 05:25 | PM.OBPRCCS ---
Procedure Pre-op/Post-op diagnoses: Pre-Op/Post-Op Diagnoses Operation Date: 04/24/22 04:45 <No data on this case meets the specified criteria> Procedure Done: Global Procedure Details: Procedures Operation Date: 04/24/22 04:45 Actual Procedure Side Surgeon p Section Lois Larkin MD Estimated blood loss (mL): 391 Disposition: floor Anesthesia type: Spinal Narrative: DELIVERY BY SECTION Date of Service: 04/24/2022 Summary: Admitted for medical induction of labor due to newly diagnosed gestational hypertension at 38 weeks and 2 days based on persistently mild range blood pressures and protein creatinine ratio of 0.1. Patient noted to have prolonged deceleration to 90s while in the shower by RN at 2310 and she was checked by RN and found to be 1.5/75/-3@2340. She was to have persistent late decelerations due to tachysystole. She had received 3 doses of 0.25 mcg of misoprostol at this time. Fluid bolus and position change was initiated. Due to minimal improvement terbutaline x 1 was given at 0045. strip return to Cat I after terbutaline. I checked patient at 0240 and she was SROM and 8/90/0. She subsequently had rapid progression. She was complete and pushing at 0327 with station at +1 Fetus noted to have deep recurrent decel to 80-90s with slow recover with every contraction. Minimal decent with pushing. Due to recurrent deceleration and slow return to baseline (lasting for 2-3 minutes), decision was made to call for emergent c/s. Scalp clip was placed and another dose of terbutaline was given. In the operating room, without pushing, fetus had good recover with good recover to 130s, moderate variability and less severe deceleration. We attempted to push in the OR one more time, however, decel to the 70s was noted. I discussed with patient that fetus was too high for any type of vaginal operative delivery. The patient was consented for section and blood. She understands that the three main categories of risk include bleeding, infection, and damage to surrounding structures. Regarding infection, she understands that we will be delivering appropriate antibiotics, however that the risk of infection following section still is approximately 5%. She understands that though the risk is very low that there is always a risk of damage to the bladder, uterus, ovaries, fallopian tubes, bowels, ureters, or even the fetus. She understands that most injuries can be addressed at the time of surgery, however, such an injury may require additional surgeries to fix. Lastly, she understands that a section carries a risk of bleeding, and that while this bleeding can be addressed with multiple medical and surgical modalities, that there is the possibility of needing a blood transfusion. She reports she would accept a blood transfusion understanding the risks of a 1/200,000 risk of Hepatitis and 1/2,000,000 risk of HIV as well as the risk of having an allergic reaction to the blood products. She further understands that this reaction is typically mild, however can be severe including respiratory distress and necessitating ICU-level care. Lastly, she understands that a section does increase risks for future pregnancies and deliveries including, but not limited to, the risk of uterine rupture or placenta accreta. She verbalized she understood all the risks and desires to proceed with primary section as recommended. Patient was able to sit for spinal due to tracing being in 130s with moderate variability and no decels without pushing. Procedure summary: Primary Lower uterine tranverse section, Pfannenstiel, Closed with sutures, QBL 391 cc, No complications, Findings: Normal uterus, bilateral ovaries and tubes - fetus was tight nuchal cord x 2. 8, 9, weight: 2795g Primary Indication: Non-reassuring heart tracing in second stage of labor Procedures: Primary Lower uterine transverse section Specimens Removed and sent to pathology: Placenta Surgeon: Lois Larkin MD Hand Cloth Cutter Surgeon: None Anaesthesia: Spinal and TAP block Report: Prophylactic antibiotic, 2 g of Ancef and 500 mg of Azithromycin was given prior to incision. After arrival to the operating room patient was placed in the supine position with left lateral tilt after administration of spinal anesthesia. Laparotomy A pfannenstiel incision was made through the anterior abdominal wall with #10 scalpel approximately 2 cm above the pubic symphysis. The incision was extended sharply with the #10 scalpel through the subcutaneous tissue to the level of fascia. The fascia was entered sharply with a #10 scalpel (Pfannenstiel) in the midline and extended in semi-elliptical fashion with digits bluntly. The rectus muscles were in the midline bluntly with digits. The peritoneum was then entered bluntly. The peritoneal incision was then extended superiorly and inferiorly under direct visualization with care being taken to avoid bladder and bowel. No adhesions were noted. The peritoneal incision was enlarged bluntly by lateral traction from the surgeon's and medical support assistant's hand. David retractor was inserted into the abdomen. Delivery A bladder flap was not developed. A low transverse hysterotomy was made then with #10 scalpel and extended laterally and cephalad with fingers in a low transverse fashion with Manu Ling technique with care being taken to avoid injury to the fetus. The amniotic cavity (membrane) was then entered with spontaneous rupture of membrane, and the amniotic fluid was noted to be clear, fetus was delivered cephalic. With delivery of the baby, no extension was noted. Placenta was delivered spontaneously with steady traction on cord and manual separation of placenta from uterine wall. Closure Uterine cavity was cleaned after placental delivery with lap sponge x 2. The hysterotomy was closed in one layer with stitches using 0 vicryl with continuous locking stitches. Hemostasis was achieved as needed with electrocautery. The ovaries/tubes/urine surface were evaluated. They were found to be normal. Fascia was closed with running stitches using 0 vicryl. Hemostasis was checked for and found to be adequate. The subcutaneous layer was closed with running Vicryl sutures. The skin was closed with monocryl subcuticular sutures . The incision was cleaned and covered with a compression bandage and the procedure considered terminate at this time. Intraoperative Complications: None QBL: 391 cc Uterotonics: 20u of pitocin and TXA Disposition: The patient tolerated the procedure well. She was recovered in Obstetric PACU for close monitoring in stable condition, with a contracted uterus and normal transvaginal bleeding. The was sent to mother?s bedside. The placenta was sent to pathology. [place] total score - 1 minute: 8 total score - 5 minute: 9
--- NOTE | 2022-04-24 05:44 | W.PM.NB ---
Nerve Block Nerve Block Time Seen by Provider: 05:21 Date Seen: 04/24/22 Type of block requested by surgeon for post-operative analgesia: TAP Side: bilateral Time out performed: Yes Verification of patient name: Yes Verification of date of : Yes Site marking: site marked Name of person performing procedure: Lucho Lino Continuous monitoring Was continuous monitoring of O2 sat, B/P, monitor technician, recorded every 15 minutes?: Yes Procedure Checklist: sterile prep, needles and gloves Ultrasound guided. Images saved: Yes Medications given in 5ml increments after negative aspiration: Marcaine %: 0.25 mL: 15 Needle gauge: 20 and Exparel mL: 5 Needle gauge: 20 Patient tolerated procedure well: Yes Block Charges Block Charge (with Pro Fee): TAP Bilateral Use of Ultrasound Machine for Block: Yes- US Guidance/pain block
--- NOTE | 2022-04-24 05:51 | W.ANESCHARGE ---
Anesthesia Charges Start Date/Time Anesthesia Start Date: 04/24/22 Anesthesia Start Time: 04:12 Stop Date/Time Anesthesia Stop Date: 04/24/22 Anesthesia Stop Time: 05:31 Summary Emergency: Yes
--- NOTE | 2022-04-24 06:01 | SUR.PHASEI ---
patient met discharge criteria per anesthesia
[2022-04-24] MEDS: LACTATED RINGERS 1000 ML 1,000 ML 500 ML IV (09:38)
[2022-04-24 11:37] LABS: Basophils Percent Auto 0.1 % (0.0-3.0); Hematocrit 25.9 % (33.0-51.0); Hemoglobin* 8.8 gm/dL (12.0-16.0); Immature Granulocytes Pct Auto 0.3 %; Lymphocytes Percent Auto 11.4 % (20-44); Mean Corpuscular HGB Conc 34 gm/dL (32-36); Mean Corpuscular Hemoglobin 31 pg (26-34); Mean Corpuscular Volume 90 fL (80-100); Monocytes Percent Auto 3.4 % (0.0-11.0); Neutrophils Percent Auto 84.8 % (42.0-72.0); Platelet Count* 198 K/uL (140-440); RDW Coefficient of Variation % 14.3 % (11.5-15.5); Red Blood Count 2.87 m/uL (4.00-5.20); White Blood Count* 15.13 K/uL (4.50-11.00)
[2022-04-24 11:38] LABS: Slide Review Reflex No
[2022-04-24 11:49] LABS: Albumin* 2.4 g/dL (3.3-5.0); Chloride* 105 mmol/L (96-114)
[2022-04-24 11:50] LABS: Potassium* 4.3 mmol/L (3.6-5.1); Sodium* 130 mmol/L (135-149)
[2022-04-24 11:52] LABS: Alkaline Phosphatase* 140 U/L (40-150); Aspartate Amino Transferase* 25 U/L (12-35); Bilirubin Total* 0.3 mg/dL (0.1-1.5); Blood Urea Nitrogen* 20 mg/dL (5-24); Carbon Dioxide* 21 mmol/L (20-32); Creatinine* 0.7 mg/dL (0.5-1.5); Estimated Glomerular Filt Rate 107 ml/min; Glucose* 100 mg/dL (60-115); Total Protein* 4.7 g/dL (6.0-8.3)
[2022-04-24 11:53] LABS: Alanine Aminotransferase* 24 U/L (4-35); Calcium* 7.4 mg/dL (8.4-10.6)
[2022-04-24] MEDS: KETOROLAC 30 MG/ML inj IVP ×2 (13:58→20:10)
[2022-04-24] MEDS: MAG HYDROX/ALUMINUM HYD/SIMETH 30 ML ORAL.SUSP PO (16:28)
[2022-04-25] VITALS (10 sets, daily range): BP systolic 113–138; BP diastolic 72–81; PULSE 74–89; RESP 16–18; TEMP 36.7–36.9; O2SAT 95–97
[2022-04-25] MEDS: LACTATED RINGERS 1000 ML 1,000 ML 125 ML IV (02:01)
[2022-04-25] MEDS: KETOROLAC 30 MG/ML inj IVP ×3 (02:07→14:03)
[2022-04-25] MEDS: ACETAMINOPHEN 500 MG TABLET 1000 MG PO ×3 (07:51→22:38)
[2022-04-25] MEDS: DOCUSATE SODIUM 100 MG CAPSULE PO (07:52)
[2022-04-25 07:55] LABS: Hemoglobin* 8.1 gm/dL (12.0-16.0)
--- NOTE | 2022-04-25 09:06 | PM.OBPNCS1 ---
OB - PN: A/P Assessment and Plan (1) Gestational hypertension: Status: Acute (2) AMA (advanced maternal age) primigravida 35+: Status: Acute (3) S/P section: Status: Acute Plan 1. DC Hernandes catheter. Urine output is adequate. 2. Abdominal binder or compression garment p.r.n.. 3. Anticipate discharge tomorrow. Plan day: 1 Plan: routine postop care OB - PN: Subj Subjective Date Seen: 04/25/22 Patient comments: no complaints and pain well controlled status: and doing well Narrative: The patient feels relatively well this morning. She was to ambulate already last evening. She had an episode of nausea and emesis last evening, but that resolved. Her pain control is adequate, discomfort is only present when she shifts position. OB - PN: Obj Exam Physical Exam: Vital signs: Temp Pulse Resp BP Pulse Ox O2 Del Method 98.1 F 74 16 113/73 96 04/25/22 08:01 04/25/22 07:53 04/25/22 07:53 04/25/22 07:53 04/25/22 07:53 04/25/22 07:53 Constitutional: Constitutional: no acute distress Routine Neck Exam: Neck: Present normal inspection Routine Abdominal Exam: Abdominal: Present soft; Absent tenderness Fundus: Present firm Routine Extremities Exam: Extremities: Present normal inspection and pedal edema; Absent calf tenderness Routine Neurological Exam: Neurological: Present alert and oriented X3 Routine Psychiatric Exam: Psychiatric: Present normal affect Wound Management: Method: suture Examination: Present clean, dry and intact; Absent erythematous Comments: Pfannenstiel incision OB - PN: Obj Data Labs Labs: Laboratory Results - last 24 hr 04/23/22 04/24/22 04/24/22 11:03 11:15 11:15 WBC 15.13 H RBC 2.87 L Hgb 8.8 L Hct 25.9 L MCV 90 MCH 31 MCHC 34 RDW Coeff of Pritesh 14.3 Plt Count 198 Neut % (Auto) 84.8 H Lymph % (Auto) 11.4 L [place] % (Auto) 3.4 Eos % (Auto) 0.0 Baso % (Auto) 0.1 Neut # (Auto) 12.80 H Lymph # (Auto) 1.70 [place] # (Auto) 0.50 Eos # (Auto) 0.00 Baso # (Auto) 0.00 Sodium 130 L Potassium 4.3 Chloride 105 Carbon Dioxide 21 BUN 20 Creatinine 0.7 Estimated Creat Clear 89.40 Estimated GFR 107 Glucose 100 Calcium 7.4 L Total Bilirubin 0.3 AST 25 ALT 24 Alkaline Phosphatase 140 Total Protein 4.7 L Albumin 2.4 L Antibody Identification Anti-D Screen 04/24/22 04/25/22 11:15 07:06 WBC RBC Hgb 8.1 L Hct MCV MCH MCHC RDW Coeff of Pritesh Plt Count Neut % (Auto) Lymph % (Auto) [place] % (Auto) Eos % (Auto) Baso % (Auto) Neut # (Auto) Lymph # (Auto) [place] # (Auto) Eos # (Auto) Baso # (Auto) Sodium Potassium Chloride Carbon Dioxide BUN Creatinine Estimated Creat Clear Estimated GFR Glucose Calcium Total Bilirubin AST ALT Alkaline Phosphatase Total Protein Albumin Antibody Identification Screen Negative
[2022-04-25] MEDS: IBUPROFEN 600 MG TABLET PO (20:09)
[2022-04-26] VITALS (8 sets, daily range): BP systolic 115–160; BP diastolic 72–96; PULSE 72–86; RESP 18; TEMP 36.4–36.8; O2SAT 96–97
[2022-04-26] MEDS: IBUPROFEN 600 MG TABLET PO ×4 (02:06→21:40)
[2022-04-26] MEDS: ACETAMINOPHEN 500 MG TABLET 1000 MG PO ×3 (04:15→16:52)
--- NOTE | 2022-04-26 09:10 | PM.OBPNCS1 ---
OB - PN: A/P Assessment and Plan (1) Gestational hypertension: Status: Acute (2) AMA (advanced maternal age) primigravida 35+: Status: Acute (3) S/P section: Status: Acute Plan 47 year old on day 2.? 1. cares.? 2. Anticipate discharge tomorrow.? Plan day: 2 Plan: routine postop care OB - PN: Subj Subjective Date Seen: 04/26/22 Patient comments: no complaints, pain well controlled, tolerating diet and flatus present status: and doing well feeding status: exclusively Narrative: Post-op Day 2:? Vaginal Delivery at 38 and 2/7 weeks.? ?? Complications:? emergency ? The patient feels well.? The pain is well controlled with current medications.? She has no new complaints.? Urinary output is adequate and she is voiding without difficulty.? Has a good appetite, is tolerating a general diet, is passing flatus, and has not had a bowel movement.? Has?scant amount of rubra lochia.? She is ambulating well.?She had been considering discharging home today but her blood pressure was elevated this morning. Labs were normal, but her pressures continued to be elevated. Consulted with Dr. Segura for mediation management of her blood pressures. Plans to stay until tomorrow for blood pressure monitoring and medications. OB - PN: Obj Exam Physical Exam: Vital signs: Temp Pulse Resp BP Pulse Ox O2 Del Method 98.1 F 82 18 141/96 H 97 04/26/22 08:00 04/26/22 09:00 04/26/22 09:00 04/26/22 09:05 04/26/22 09:00 04/26/22 09:00 Narrative: GENERAL APPEARANCE:? normal affect, alert, no distress? MOOD:? appropriate? CHEST:? clear to auscultation and percussion? HEART:? regular rate and rhythm? ABDOMEN:? soft, non-tender the uterine fundus is?U/2?and is appropriate for the stage of recovery.?Incision well approximated without drainage or redness. PERINEUM:? no edema of the perineum.? EXTREMITIES:? normal and no edema?
[2022-04-26 09:37] LABS: Basophils Absolute Auto 0.03 K/uL (0.00-0.30); Basophils Percent Auto 0.3 % (0.0-3.0); Eosinophils Absolute Auto 0.25 K/uL (0.00-0.50); Eosinophils Percent Auto 2.6 % (0.0-7.0); Hematocrit 25.6 % (33.0-51.0); Hemoglobin* 8.5 gm/dL (12.0-16.0); Immature Granulocytes Abs Auto 0.04 K/uL (0.00-0.30); Immature Granulocytes Pct Auto 0.4 %; Lymphocytes Percent Auto 18.7 % (20-44); Mean Corpuscular HGB Conc 33 gm/dL (32-36); Mean Corpuscular Hemoglobin 30 pg (26-34); Mean Corpuscular Volume 91 fL (80-100); Monocytes Percent Auto 3.6 % (0.0-11.0); Neutrophils Percent Auto 74.4 % (42.0-72.0); Platelet Count* 219 K/uL (140-440); RDW Coefficient of Variation % 14.6 % (11.5-15.5); White Blood Count* 9.62 K/uL (4.50-11.00)
[2022-04-26 09:41] LABS: Slide Review Reflex No
[2022-04-26 09:53] LABS: Alanine Aminotransferase* 21 U/L (4-35); Aspartate Amino Transferase* 24 U/L (12-35); Blood Urea Nitrogen* 9 mg/dL (5-24); Creatinine* 0.5 mg/dL (0.5-1.5); Est. Creatinine Clearance* 125.16; Estimated Glomerular Filt Rate 116 ml/min
[2022-04-26] MEDS: NIFEdipine 30 MG TAB.ER.24 PO (13:41)
[2022-04-27] MEDS: ACETAMINOPHEN 500 MG TABLET 1000 MG PO ×2 (01:30→08:15)
[2022-04-27 01:41] VITALS: BP 139/79; PULSE 84; RESP 16; TEMP 36.6; O2SAT 95
[2022-04-27] MEDS: IBUPROFEN 600 MG TABLET PO ×2 (03:44→12:27)
[2022-04-27] MEDS: NIFEdipine 30 MG TAB.ER.24 PO ×2 (08:15→13:19)
[2022-04-27] MEDS: DOCUSATE SODIUM 100 MG CAPSULE PO (08:15)
[2022-04-27 08:26] VITALS: BP 131/86; PULSE 85; RESP 16; TEMP 36.3; O2SAT 98
--- NOTE | 2022-04-27 08:53 | P.DS_ITS ---
DS: Providers Provider Date Seen: 04/27/22 Date of admission: 04/23/22 12:13 Primary care physician: Erin Lockett MD Admitting Clinician: Lois Larkin MD Attending Physician on discharge: Lois Larkin MD DS: Diagnosis Discharge Diagnosis (1) S/P section: Status: Acute Problem details: Emergent for recurrent late decels in the 2nd stage. Jj Garner#3oz. (2) Gestational hypertension: Status: Acute Exam Narrative: Exam Narrative: HOSPITAL COURSE: Elizabeth is a 47 year old, G 1 now P 1 admitted on 04/25/2022 for spontaneous onset of labor. She had an emergency primary low-transverse for recurrent late decelerations in the 2nd stage, she developed gestational hypertension and was discharged home on postop day 3 with nifedipine XL 30 mg daily. She is breast feeding and reports things are going well. the patient has done well. Blood pressure has improved since starting nifedipine. She has remained afebrile. DISCHARGE Vital Signs: See EMR Discharge Examination GENERAL APPEARANCE: normal affect, alert, no distress MOOD: appropriate CHEST: clear to auscultation HEART: regular rate and rhythm ABDOMEN: soft, non-tender the uterine fundus is at 2 cm Umbilicus, Midline and is appropriate for the stage of recovery. PERINEUM: no edema of the perineum EXTREMITIES: normal and no edema INCISION: To areas of ecchymosis noted. Incision is clean, dry and intact with sutures and skin adhesive gel. Const: Vital Signs, click to edit/add: Vital Signs - 24 hr 04/26/22 09:00 04/26/22 09:05 04/26/22 12:48 Temperature 98.3 F Pulse Rate [Left R adial] 82 86 Respiratory Rate 18 18 Blood Pressure [Ri ght Arm] 150/94 H 141/96 H 160/94 H Pulse Oximetry 97 96 Oxygen Delivery Me thod Room Air Room Air 04/26/22 16:02 04/26/22 20:03 04/27/22 01:41 Temperature 98.2 F 97.8 F Pulse Rate [Left R adial] 84 84 Respiratory Rate 18 16 Blood Pressure [Ri ght Arm] 139/88 144/93 H 139/79 Pulse Oximetry 96 95 Oxygen Delivery Me thod Room Air Room Air 04/27/22 08:26 Temperature 97.3 F L Pulse Rate [Left R adial] 85 Respiratory Rate 16 Blood Pressure [Ri ght Arm] 131/86 Pulse Oximetry 98 Oxygen Delivery Me thod Room Air Nasal Can nula DS: Data Data Completed and Pending Labs on day of discharge: Labs from last 24 hours 04/26/22 04/26/22 09:24 09:24 WBC 9.62 RBC 2.80 L Hgb 8.5 L Hct 25.6 L MCV 91 MCH 30 MCHC 33 RDW Coeff of Pritesh 14.6 Plt Count 219 Neut % (Auto) 74.4 H Lymph % (Auto) 18.7 L [place] % (Auto) 3.6 Eos % (Auto) 2.6 Baso % (Auto) 0.3 Neut # (Auto) 7.20 H Lymph # (Auto) 1.80 [place] # (Auto) 0.30 Eos # (Auto) 0.25 Baso # (Auto) 0.03 BUN 9 Creatinine 0.5 Estimated Creat Clear 125.16 Estimated GFR 116 AST 24 ALT 21 OB - DS: Summary Hospital Course Hospital Course: The patient is a 47 year old G [] P [] at [] weeks gestation that was admitted to the Center on 04/23/22 for []. She had an [unco mplicated/complicated] [vaginal/] delivery. She delivered a viable [male/female] infant. She is [breast/bottle] feeding. the patient has done well. Peripartum Data Procedures: Procedures Operation Date: 04/24/22 04:45 Actual Procedure Side Surgeon p Section Lois B MD Trae Gender: Male Time Spent with Patient Time attestation: Total time spent providing and/or coordinating discharge services: Discharge Plan Discharge Disposition: Home, Self-Care Date of Admission: 04/23/22 12:13 Attending Provider on Discharge: Shaye Mark Primary Care Provider: Erin Lockett Condition: Stable Anticipated Discharge Date/Time: 04/27/22 12:00 Discharge Medications: New docusate sodium 100 mg Capsule 100 mg PO BID PRN (Reason: constipation) Qty: 100 0RF nifedipine 30 mg Tablet Extended Release 24hr 30 mg PO DAILY Qty: 60 0RF ibuprofen 600 mg Tablet 600 mg PO Q6H PRN (Reason: Pain) Qty: 30 0RF oxycodone 5 mg Tablet 5 mg PO 3XD PRN (Reason: Abdominal Pain) Qty: 21 0RF Continued prenat.vits,dolores,dde-zxmk-vcorq Tablet 1 tab PO QDAY calcium carbonate [Calcium 600] 600 mg calcium (1,500 mg) tablet 600 mg PO QDAY cholecalciferol (vitamin D3) 25 mcg (1,000 unit) capsule 63 mcg PO QDAY cyanocobalamin (vitamin B-12) 500 mcg tablet 850 mcg PO DAILY loratadine 10 mg tablet 10 mg PO QDAY famotidine [Acid Veterans' Counselor (famotidine)] 20 mg tablet 20 mg PO QDAY phytosterol-vit D3-fish oil 650-400 mg-unit capsule 830 cap PO QDAY iron glycinate 25 mg PO 1XD Label Comments: Brand Name: JULIAN teran. Discontinued aspirin [Adult Low Dose Aspirin] 81 mg tablet,delayed release (DR/EC) 81 mg PO QDAY Discharge Orders: Discharge Order (Routine); Ordered 04/27/22 Ordered By: Shaye Mark Patient Education: (DC), Hypertension During (DC) Additional Instructions: ACTIVITY RESTRICTIONS: 1. Nothing vaginally for 6 weeks: No intercourse or tampons. 2. Do not soak the incision for 2 weeks. Shower and pat dry. 3. No high impact or core exercise for [address] while taking oral narcotic pain medication (1-2 weeks) 5. No lifting greater than 20 lb for 6 weeks. * Walking and going up/down steps is safe right away and as much as you feel up to doing. * Expect some vaginal bleeding for 2-6 weeks: Red like a moderate menstrual cycle for 2-3 weeks, then maroon/brown spotting followed by pink/yellow discharge. Symptoms to report to doctor: -Bleeding that saturates more than one pad per hour ?-Passing clots larger than the size of a golf ball ?-Pain not relieved by prescribed medication ?-Fever above 100.4 degrees Fahrenheit ?-A foul vaginal odor ?-Difficulty in emotions, mood and functions ?-Thoughts of hurting yourself and/or ?-Painful, reddened area in your breast ?-Any drainage, redness or tenderness in your IV/epidural site ?-Severe headache that doesn't improve after taking medications ?-Changes in vision, including temporary loss of vision, blurred vision, and/or light sensitivity ?-Upper abdominal pain (usually under ribs on the right side) ?-Decrease in urination or painful, frequent urinating ?-Chest pain ?-Shortness of breath ?-Tenderness or pain with redness and/swelling in the calf(s) of your leg FOLLOW-UP APPOINTMENTS: 1. Next week for a blood pressure check. 2. Optional 2 week visit: Discuss control options, answer questions regarding care and screen for anxiety/depression. 3. 6 week visit for a physical exam. consultation services are available to all mothers and babies for the first year after delivery.? To make an appointment, please call [phone]. Discharge Diet: Regular Follow Up Appointments: [facility] [Provider Group] Shaye Mark MD [Staff Physician] - Erin Lockett MD [Primary Care Provider] - Forms: [employer] Info Instructions
[2022-04-27 09:21] VITALS: BP 155/88; PULSE 97; RESP 16; TEMP 36.8; O2SAT 96
[2022-04-27 10:00] VITALS: BP 142/76
[2022-04-27 12:42] VITALS: BP 157/95; PULSE 103; RESP 16; TEMP 36.6; O2SAT 98
[2022-04-27 12:57] VITALS: BP 149/93
--- NOTE | 2022-04-27 14:16 | PC.NURSE ---
RN notified MD Kristina Quesada via [facility] at 0959 regarding patients blood pressure upon recieving a Rhogam shot. The Patients blood pressure was 155/88 with a recheck of 142/76. aware and plans to move forward with discharge as planned at this time.
== END 2022-04-27 14:35 | disposition home or self-care (01) | DRG 540 ==
LOC: OB OUT 12:13 → OB 12:13
PROVIDERS: Obstetrics & Gynecology; Admitting Provider Obstetrics & Gynecology; PCP Family Medicine; Visit Provider Obstetrics & Gynecology
PROC: 10D00Z1 Extraction of Products of Conception, Low, Open Approach (ICD-10-PCS; CPT 59514; principal; 2022-04-24 04:30)
DX: O13.4 Gestational [pregnancy-induced] hypertension without significant proteinuria, complicating childbirth (principal); O76 Abnormality in fetal heart rate and rhythm complicating labor and delivery; O99.824 Streptococcus B carrier state complicating childbirth; Z3A.38 38 weeks gestation of pregnancy; Z37.0 Single live birth
CPT/HCPCS: 01961; 36415; 59200; 64488; 76819; 76942; 80053; 82565; 82570; 84156; 84450; 84460; 84520; 85018; 85025; 85027; 85461; 86850; 86870; 86880; 86900; 86901; 87635; 88307; 99140; A9270; C9290; J0290; J1885; J2274; J2370; J2405; J2791; J3105; J3490; J7120

== ENCOUNTER 2023-04-22 15:04 | Emergency (ER) | payer BC, SELFPAY ==
[2023-04-22 15:23] VITALS: BP 135/84; PULSE 118; RESP 18; TEMP 37.1; O2SAT 98; BMI 24.0
--- NOTE | 2023-04-22 15:56 | ED_ITS ---
HPI - General Adult General Chief complaint: Cough Stated complaint: Pain cough post covid-ref by triage for blood clot Time Seen by Provider: 04/22/23 15:52 History of Present Illness HPI narrative: Pt here for eval by rec of triage nurse line. Has had lingering cough after covid ( traveled home from [place] on 03/27, symptoms started on , positive test on 04/06). Pt called nurse line to make apt for pulled muscle L chest from coughing and d/t recent travel was told to present to ED for rule out of blood clot. Only has pain when coughing. Pt has been very anxious about being told of a possible blood clot. 48-year-old woman presenting to the emergency department with concern of chest pain. Really only hurting now when she coughs. Traveled on a long distance flight about 4 weeks ago and began having symptoms 3 weeks ago testing positive for COVID little over 2 weeks ago. She reports clearing antigen testing 3 days ago. Has not had any fever. Five days ago was coughing more and began to have pain in the left chest. Pain and lingered and so called in and talked nurse triage line was recommended to present to the emergency department. Is not feeling short of breath. She does not have pleuritic pain outside of coughing. No leg pain or swelling through this whole process. No history of coagulopathy in herself or family. No noted trauma beyond the coughing. She thought initially that probably it was just a pulled muscle. She is worried but also thinks that it is unlikely to be a pulmonary embolus. Related Data Home Medications Medication Instructions Recorded Confirmed prenat.vits,dolores,[id number] 1 tab PO QDAY 11/08/21 06/04/22 fluticasone propionate 50 1 spray intranasal BID PRN 04/22/23 04/22/23 mcg/actuation nasal spray,suspension (24 Hour Allergy Relief) guaifenesin 100 mg/5 mL oral 200 mg PO Q6H PRN 04/22/23 04/22/23 liquid (Adult Tussin Chest Congestion) ibuprofen 600 mg tablet 600 mg PO Q6H PRN pain 04/22/23 04/22/23 Allergies Allergy/AdvReac Type Severity Reaction Status Date / Time No Known Drug Allergies Allergy Verified 06/04/22 13:01 Review of Systems Status of ROS: Reports: 6 or more systems reviewed and unremarkable except as noted in History and below [facility] Medical History Hypertension ?I10 - Essential (primary) hypertension (ICD-10) ?Z34.90 - Encounter for supervision of normal , unspecified, unspecified trimester (ICD-10) Pruritus of vulva ?L29.2 - Pruritus vulvae (ICD-10) Surgical History S/P section (04/24/22) ?Z98.891 - History of uterine scar from previous surgery (ICD-10) Status post hysteroscopic myomectomy ?Z98.890 - Other specified postprocedural states (ICD-10) History of repair of anterior cruciate ligament of left knee (2004) ?Z98.890 - Other specified postprocedural states (ICD-10) Family History Family/Other Pancreatic cancer Social History Narrative: Lives in [place] with Juan [place]. Non-smoker Single, college admission [employer], no kids Social drinker (3/week) Vegetarian diet Smoking Status: Never smoker Do you use any of these nicotine containing products: None Second hand tobacco smoke exposure: No How often do you have a drink containing alcohol: never How often do you have six or more drinks on one occasion: Never AUDIT-C Alcohol total score: 0 Non-prescribed substance use: denies use Little interest or pleasure in doing things: not at all Feeling down, depressed, or hopeless: not at all service: No Exam Narrative: Exam Narrative: Very pleasant. Of good energy. Sounds congested little bit in the nasopharynx. Skin is warm and dry. Breathing easily. Lungs are clear with breath sounds throughout. She has no supraclavicular crepitus. Trachea is midline. There is no stridor. Heart in mildly elevated rate and regular rhythm. No murmur rub or gallop. Extremities are without edema or tenderness. Negative Homans. Well- perfused. She is tender to palpation in the far left upper chest. Const: Vital Signs, click to edit/add: Vital Signs - 24 hr 04/22/23 15:23 Temperature 98.7 F Pulse Rate [Pulse Oximeter] 118 H Respiratory Rate 18 Blood Pressure [Ri ght Upper Arm] 135/84 Pulse Oximetry 98 Oxygen Delivery Me thod Room Air Documenting provider has reviewed patient's vital signs: yes Course Vital Signs Vital signs: Initial Vital Signs Temperature 98.7 F 04/22/23 15:23 Temperature Source Temporal Artery Scan 04/22/23 15:23 Pulse Rate 118 H 04/22/23 15:23 Pulse Rhythm Regular 04/22/23 15:23 Respiratory Rate 18 04/22/23 15:23 Blood Pressure 135/84 04/22/23 15:23 Blood Pressure Mean 101 04/22/23 15:23 Blood Pressure Position Sitting 04/22/23 15:23 Pulse Oximetry 98 04/22/23 15:23 Oxygen Delivery Method Room Air 04/22/23 15:23 Vital Signs Temperature 98.7 F 04/22/23 15:23 Pulse Rate 118 H 04/22/23 15:23 Respiratory Rate 18 04/22/23 15:23 Blood Pressure 135/84 04/22/23 15:23 Pulse Oximetry 98 04/22/23 15:23 Oxygen Delivery Method Room Air 04/22/23 15:23 Temperature 98.7 F 04/22/23 15:23 Pulse Rate 118 H 04/22/23 15:23 Respiratory Rate 18 04/22/23 15:23 Blood Pressure 135/84 04/22/23 15:23 Pulse Oximetry 98 04/22/23 15:23 Oxygen Delivery Method Room Air 04/22/23 15:23 Medical Decision Making MDM Narrative Medical decision making narrative: I do note tachycardia on initial vitals. Regular in rhythm Given the lack of persistent symptoms I think is less likely that does have pulmonary embolus. Look for potential pneumonia. Could possibly have pneumothorax. More likely chest wall pain. With this in mind and discussion of options we decided to screen with D-dimer. Also chest x-ray looking for other differential as above. Chest x-ray reviewed by me looks to be WNL. No pneumothorax. No infiltrate. Confirmed on radiology over-read. D-dimer of 0.51. Reproducibility of discomfort to palpation of chest is reassuring. Otherwise well during time in the emergency department. No other interventions required See patient discharge plan Lab Data Lab results reviewed: Yes I reviewed the patient's lab results Labs: Lab Results 04/22/23 Range/Units 16:34 D-Dimer Quant (PE/DVT) 0.51 H (0.00-0.50) ug/ml Discharge Plan Discharge Clinical Impression: Chest wall pain Patient Disposition: Home, Self-Care Condition: Stable Additional Instructions: I think you are likely right that you strained something in the layers of your chest wall with coughing. You might take regularly dosed ibuprofen over the next 4 days. Perhaps 600 mg each dose maybe with a little food 3 times daily. The prednisone from [facility] would be another option for anti-inflammatory, maybe more directed at the cough in this case. Cough otherwise in your case especially as suspect postnasal drip related, could be helped by pseudoephedrine for drying and decongestion. I like the 12 hour formulation. Sucking on ice chips can be helpful. Menthol vapors in the area where you sleep or elevating the head of your bed can help. Otherwise also might sleep under the mist of a cool mist humidifier. If you find guaifenesin/dextromethorphan helpful, it is fine to continue it. You might also try half a tsp of honey. Do stay well-hydrated. Prescriptions: No Action prenat.vits,dolores,[id number] Tablet 1 tab PO QDAY fluticasone propionate [24 Hour Allergy Relief] 50 mcg/actuation spray,suspension 1 spray intranasal BID PRN Rx Instructions: administer into each nostril guaifenesin [Adult Tussin Chest Congestion] 100 mg/5 mL liquid 200 mg PO Q6H PRN ibuprofen 600 mg tablet 600 mg PO Q6H PRN (Reason: pain) Follow Up/Referrals: Erin Lockett MD [Primary Care Provider] - Stand Alone Forms: [employer] Info Instructions
--- NOTE | 2023-04-22 16:21 | CRLHL7_ITS ---
For Patients: As a result of the Century Cures Act, medical imaging exams and procedure reports are released immediately into your electronic medical record. You may view this report before your referring provider. If you have questions, please contact your health care provider. INDICATION: Left-sided chest pain and cough, Covid positive on 04/06/2023 COMPARISON: None. TECHNIQUE: 1 view chest radiograph. FINDINGS: Lung volumes are good. No focal consolidations. No pulmonary edema. No pleural effusion. No pneumothorax. No pneumomediastinum. Normal cardiomediastinal silhouette. Bones: Normal for age. IMPRESSION: Lungs clear. Normal chest radiograph. Dictated by Missy Kaiser MD @ 04/22/2023 5:53:13 PM (Electronically Signed)
[2023-04-22 17:00] LABS: D Dimer Quantitative* 0.51 ug/ml (0.00-0.50)
== END 2023-04-22 18:27 | disposition home or self-care (01) ==
PROVIDERS: Emergency Provider Family Medicine; PCP Family Medicine
DX: R07.89 Other chest pain (principal)
CPT/HCPCS: 36415; 71045; 85379; 95992; 99284